=== PATIENT | male | born 1960 | race African-American/Black ===

== ENCOUNTER 2019-03-21 18:14 | Emergency (ER) | payer MEDICAID, OTHER ==
[~2019-03-21] VITALS: Ht 175.3 cm; Wt 95.7 kg
[2019-03-21] MEDS ORDERED: PROMACTA PO (18:47)
[2019-03-21 19:00] VITALS: BP 106/73
--- NOTE | 2019-03-21 19:00 | NUR ---
ED Nurse Note: Pt ambulated to ED home c/o fever at home. Pt denies pain.
[2019-03-21 19:49] LABS: BILIRUBIN, URINE NEGATIVE (NEGATIVE); GLUCOSE, URINE (UA) NEGATIVE (NEGATIVE); KETONES,URINE 1+ (NEGATIVE); LEUKOCYTE ESTERASE ,URINE 1+ (NEGATIVE); NITRITE,URINE NEGATIVE (NEGATIVE); PH,URINE 5 (4.5-8.0); PROTEIN,URINE 1+ (NEGATIVE); UROBILINOGEN,URINE NORMAL MG/DL (0.0-1.0)
[2019-03-21 19:52] LABS: APPEARANCE,URINE SLIGHTLY CLOUDY; COLOR,URINE YELLOW
[2019-03-21 19:53] LABS: ANION GAP 7 mmol/L (5-15); BLOOD UREA NITROGEN 11 mg/dL (7-18); CALCIUM 9.3 MG/DL (8.5-10.1); CARBON DIOXIDE 30 MMOL/L (21-32); CHLORIDE 103 MMOL/L (98-107); CREATININE 1.2 MG/DL (0.55-1.30); POTASSIUM 4.5 MMOL/L (3.5-5.1); SODIUM 139 MMOL/L (136-145)
[2019-03-21 19:58] LABS: ALANINE AMINOTRANSFERASE 61 U/L (12-78); ALBUMIN 3.5 G/DL (3.4-5.0); ALBUMIN/GLOBULIN RATIO 0.9 (1.0-2.7); ALKALINE PHOSPHATASE 105 U/L (46-116); ASPARTATE AMINO TRANSFERASE 40 U/L (15-37); BILIRUBIN,TOTAL 0.9 MG/DL (0.2-1.0)
[2019-03-21 20:20] LABS: HEMATOCRIT 31.5 % (42.0-52.0); HEMOGLOBIN 11.1 G/DL (14.2-18.0); MEAN CORPUSCULAR VOLUME 94 FL (80-99); PLATELET COUNT 21 K/UL (150-450); RED BLOOD COUNT 3.34 M/UL (4.70-6.10); RED CELL DISTRIBUTION WIDTH 14.7 % (11.6-14.8); WHITE BLOOD COUNT 5.4 K/UL (4.8-10.8)
[2019-03-21] MEDS ORDERED: Levofloxacin 750mg tab ORAL ONE (21:30)
[2019-03-21] MEDS ORDERED: TBO-Filgrastim 480 mcg/0.8ml SQ ONE (21:30)
[2019-03-21] MEDS ORDERED: LEVAQUIN750 MG ORAL (21:34)
[2019-03-21 21:45] VITALS: BP 106/73
--- NOTE | 2019-03-21 21:45 | NUR ---
ER DISCHARGE NOTE: Patient is cleared to be discharged per ERMD, pt is aox4, on room air, with stable vital signs. pt was given dc and prescription instructions, pt was able to verbalize understanding, pt id band and iv site removed without complications. pt is able to ambulate with steady gait. pt took all belongings.
--- NOTE | 2019-03-21 22:41 | Emergency Room Report ---
History of Present Illness General Chief Complaint: Fever Source: Patient Present Illness HPI 58-year-old male presents ED for evaluation. Complaining of a fever x1 day. States he had a temperature of 100.8. Took Tylenol. Afebrile here. States he has head and neck cancer. Is currently receiving chemotherapy treatments. Is scheduled for another one soon. States he feels fine. Denies any cough. Denies any sore throat. Denies any weakness. No other aggravating relieving factors. Denies any other associated symptoms Allergies: Coded Allergies: No Known Allergies (Unverified , 03/21/19) Patient History Past Medical History: other - head and neck cancer Past Surgical History: none Pertinent Family History: none Social History: Denies: smoking, alcohol use, drug use Immunizations: UTD Reviewed Nursing Documentation: PMH: Agreed; PSxH: Agreed Nursing Documentation-PMH Past Medical History: No History, Except For Hx Cancer: Yes - neck Review of Systems All Other Systems: negative except mentioned in HPI Physical Exam Vital Signs Date Time Temp Pulse Resp B/P (MAP) Pulse Ox O2 Delivery O2 Flow Rate FiO2 03/21/19 18:41 98.2 77 19 106/73 (84) 96 Room Air Sp02 EP Interpretation: reviewed, normal General Appearance: no apparent distress, alert, GCS 15, non-toxic Head: normocephalic, atraumatic Eyes: bilateral eye normal inspection, bilateral eye PERRL ENT: hearing grossly normal, normal pharynx, no angioedema, normal voice Neck: full range of motion, supple/symm/no masses Respiratory: chest non-tender, lungs clear, normal breath sounds, speaking full sentences Cardiovascular #1: regular rate, rhythm, no edema Cardiovascular #2: 2+ carotid (R), 2+ carotid (L), 2+ radial (R), 2+ radial (L) , 2+ dorsalis pedis (R), 2+ dorsalis pedis (L) Gastrointestinal: normal bowel sounds, non tender, soft, non-distended, no guarding, no rebound Rectal: deferred Genitourinary: normal inspection, no CVA tenderness Musculoskeletal: back normal, gait/station normal, normal range of motion, non- tender Neurologic: alert, oriented x3, responsive, motor strength/tone normal, sensory intact, speech normal Psychiatric: judgement/insight normal, memory normal, mood/affect normal, no suicidal/homicidal ideation Reflexes: 3+ bicep (R), 3+ bicep (L), 3+ tricep (R), 3+ tricep (L), 3+ knee (R) , 3+ knee (L) Lymphatic: no adenopathy Medical Decision Making Diagnostic Impression: Primary Impression: Fever Qualified Codes: R50.9 - Fever, unspecified ER Course Hospital Course 58 yo M presents to ED c/o fever. currently undegoing chemotherapy for head and neck cancer Differential diagnoses include: pneumonia, sepsis, UTI Clinical course Patient placed on stretcher. After initial history, physical exam reveals a middle aged male in no acute distress. Bilateral TM unremarkable. No pharyngeal erythema. No tonsillar exudates. No lymphadenopathy. lungs clear. I ordered labs, UA, chest x-ray. Labs reviewed- no leukocytosis, hb/hct stable, electrolytes ok, lactic ok Chest x-ray shows no focal consolidation ANC is very low. consideration for neutropenic fever. Patient appears well, nontoxic appearing. Vitals stable. discussed with his oncologist Dr. Jacob ([phone]). Agrees that patient can be discharged to home. Requesting the blood cultures be drawn Patient has been unable to get his Neupogen. We requested a dose from pharmacy and they agreed to provide Neupogen in the ED. patient was supposed to be on Levaquin but patient had not been able to fill the prescription yet. I explained that it is very important that the patient be started on these antibiotics because of his low ANC. Given a dose of Levaquin in ED. I will provide a prescription for Levaquin. Safe for discharge for close outpatient follow-up. States they have an appointment with Dr. Jacob in 2 days Diagnosis - fever Stable and discharged home with prescriptions for levaquin. Instructed to followup with PMD. Return to ED if symptoms recur or worsen Labs Test 03/21/19 19:20 White Blood Count 5.4 K/UL (4.8-10.8) Red Blood Count 3.34 M/UL (4.70-6.10) Hemoglobin 11.1 G/DL (14.2-18.0) Hematocrit 31.5 % (42.0-52.0) Mean Corpuscular Volume 94 FL (80-99) Mean Corpuscular Hemoglobin 33.1 PG (27.0-31.0) Mean Corpuscular Hemoglobin Concent 35.2 G/DL (32.0-36.0) Red Cell Distribution Width 14.7 % (11.6-14.8) Platelet Count 21 K/UL (150-450) Mean Platelet Volume 7.8 FL (6.5-10.1) Neutrophils (%) (Auto) % (45.0-75.0) Lymphocytes (%) (Auto) % (20.0-45.0) Monocytes (%) (Auto) % (1.0-10.0) Eosinophils (%) (Auto) % (0.0-3.0) Basophils (%) (Auto) % (0.0-2.0) Differential Total Cells Counted 100 Neutrophils % (Manual) 2 % (45-75) Lymphocytes % (Manual) 95 % (20-45) Monocytes % (Manual) 3 % (1-10) Eosinophils % (Manual) 0 % (0-3) Basophils % (Manual) 0 % (0-2) Band Neutrophils 0 % (0-8) Reactive Lymphocytes 2+ Platelet Estimate Decreased Platelet Morphology Normal Hypochromasia 1+ Anisocytosis 1+ Urine Color Yellow Urine Appearance Slightly cloudy Urine pH 5 (4.5-8.0) Urine Specific [place] 1.015 (1.005-1.035) Urine Protein 1+ (NEGATIVE) Urine Glucose (UA) Negative (NEGATIVE) Urine Ketones 1+ (NEGATIVE) Urine Blood Negative (NEGATIVE) Urine Nitrite Negative (NEGATIVE) Urine Bilirubin Negative (NEGATIVE) Urine Urobilinogen Normal MG/DL (0.0-1.0) Urine Leukocyte Esterase 1+ (NEGATIVE) Urine RBC 0 /HPF (0 - 0) Urine WBC 2-4 /HPF (0 - 0) Urine Squamous Epithelial Cells Occasional /LPF Urine Bacteria Few /HPF (NONE) Urine Mucus Many /LPF (NONE/OCC) Sodium Level 139 MMOL/L (136-145) Potassium Level 4.5 MMOL/L (3.5-5.1) Chloride Level 103 MMOL/L (98-107) Carbon Dioxide Level 30 MMOL/L (21-32) Anion Gap 7 mmol/L (5-15) Blood Urea Nitrogen 11 mg/dL (7-18) Creatinine 1.2 MG/DL (0.55-1.30) Estimat Glomerular Filtration Rate > 60 mL/min (>60) Glucose Level 100 MG/DL (74-106) Lactic Acid Level 0.80 mmol/L (0.4-2.0) Calcium Level 9.3 MG/DL (8.5-10.1) Total Bilirubin 0.9 MG/DL (0.2-1.0) Aspartate Amino Transf (AST/SGOT) 40 U/L (15-37) Alanine Aminotransferase (ALT/SGPT) 61 U/L (12-78) Alkaline Phosphatase 105 U/L (46-116) Total Protein 7.6 G/DL (6.4-8.2) Albumin 3.5 G/DL (3.4-5.0) Globulin 4.1 g/dL Albumin/Globulin Ratio 0.9 (1.0-2.7) Chest X-Ray Diagnostic Results Chest X-Ray Diagnostic Results : Chest X-Ray Ordered: Yes # of Views/Limited/Complete: 1 View Indication: Other EP Interpretation: Yes Interpretation: no consolidation, no effusion, no pneumothorax, no acute cardiopulmonary disease Impression: No acute disease Electronically Signed by: Electronically signed by Rick Roe MD Last Vital Signs Date Time Temp Pulse Resp B/P (MAP) Pulse Ox O2 Delivery O2 Flow Rate FiO2 03/21/19 21:45 98.2 79 19 106/73 96 Room Air Status: improved Disposition: HOME, SELF-CARE Condition: Stable Scripts Levofloxacin* (LEVAQUIN*) 750 Mg Tablet 750 MG ORAL DAILY for 7 Days, #7 TAB Prov: Rick Roe MD 03/21/19 Referrals: [facility]ERR[facility] (PCP) Patient Instructions: Neutropenia Additional Instructions: you must fill your prescription for levaquin. followup with your oncologist. return to ED if symptoms recur/worsen. Rick Roe MD Mar 21, 2019 22:41
--- NOTE | 2019-03-22 11:03 | Diagnostic Imaging Report ---
Indication: Cough Technique: One view of the chest Comparison: none Findings: Lungs and pleural spaces are clear. Heart size is normal. There is a right chest port catheter in place Impression: No acute process
== END 2019-03-21 21:45 | disposition home or self-care (01) ==
LOC: EMR 20:44
DX: R50.9 Fever, unspecified (principal); C76.0 Malignant neoplasm of head, face and neck
CPT/HCPCS: 36415; 71045; 80053; 81003; 83605; 85007; 85025; 87040; 96372; 99284; J1442

== ENCOUNTER 2019-03-27 14:56 | Emergency (ER) | payer MEDICAID, OTHER ==
[~2019-03-27] VITALS: Ht 175.3 cm; Wt 94.8 kg
[~2019-03-27 14:56] MED LIST: LEVAQUIN750 MG ORAL; PROMACTA PO
[2019-03-27 15:08] VITALS: BP 118/73
--- NOTE | 2019-03-27 15:18 | NUR ---
ED Nurse Note: PT FROM HOME CAME IN DUE TO RIGHT MIDDLE FINGER SWELLING X 4 DAYS. DENIES ANY INJURY AND STATES HE JUST WOKE UP WITH THE SWELLING. AAOX4 AND AMBULATORY.
--- NOTE | 2019-03-27 16:25 | Emergency Room Report ---
History of Present Illness General Chief Complaint: Skin Rash/Abscess Source: Patient, Medical Record Present Illness HPI 59-year-old male with history of thyroid cancer currently under the care of oncologist with a recent normal white blood count tested 2 days ago, and taking Levaquin and medication for thrombocytopenia all prescribed by primary care and oncologist, here complaining of pain and swelling on left hand stone polisher digit. Denies any fall or injury however reports that might have accidentally punctured it. Rating pain 7 out of 10 without radiation. Reports that symptoms have been existent for the past 2 days. Denies fever and chills, shortness of breath, chest chest pain, palpitation, no other associated symptoms. Also shows an overgrowth, and right wrist that reports that has been there for several months and has not mentioned it to her primary care physician nor the oncologist. Denies any pain in that area, due to it being chronic patient was advised to follow with primary care for further CT scan versus MRI of the affected area and referral to specialist for possible biopsy and vascular studies. Patient agrees. Allergies: Coded Allergies: No Known Allergies (Unverified , 03/21/19) Patient History Past Medical History: see triage record Past Surgical History: unable to obtain Pertinent Family History: none Immunizations: UTD Reviewed Nursing Documentation: PMH: Agreed; PSxH: Agreed Nursing Documentation-PMH Hx Cancer: Yes - neck Review of Systems All Other Systems: negative except mentioned in HPI Physical Exam Vital Signs Date Time Temp Pulse Resp B/P (MAP) Pulse Ox O2 Delivery O2 Flow Rate FiO2 03/27/19 15:08 98.8 87 18 118/73 93 Room Air Sp02 EP Interpretation: reviewed, normal General Appearance: no apparent distress, alert, GCS 15, non-toxic Head: normocephalic, atraumatic Eyes: bilateral eye normal inspection, bilateral eye PERRL ENT: hearing grossly normal, normal pharynx, no angioedema, normal voice Neck: full range of motion, supple/symm/no masses Respiratory: chest non-tender, lungs clear, normal breath sounds, no rhonchi, no wheezing, speaking full sentences Cardiovascular #1: regular rate, rhythm, no edema, no murmur, normal capillary refill Cardiovascular #2: 2+ radial (R), 2+ radial (L) Gastrointestinal: normal bowel sounds, non tender, soft, non-distended, no guarding, no rebound Rectal: deferred Genitourinary: no CVA tenderness Musculoskeletal: back normal, digits/nails normal, gait/station normal, normal range of motion, non-tender, no calf tenderness, pelvis stable, other - Hard, mobile, semi-pulsatile growth noted on right wrist appears to be chronic, puncture wound noted left hand stone polisher digit Neurologic: alert, oriented x3, responsive, motor strength/tone normal, sensory intact, speech normal Psychiatric: judgement/insight normal, memory normal, mood/affect normal, no suicidal/homicidal ideation Skin: other - Puncture wound left hand third digit Lymphatic: no adenopathy Medical Decision Making PA Attestation Diagnosis and treatment plans were reviewed and discussed with my supervising physician Dr. Barragan Diagnostic Impression: Primary Impression: Puncture wound of finger Additional Impression: Mass of right wrist ER Course 59-year-old male with history of thyroid cancer currently under the care of oncologist with a recent normal white blood count tested 2 days ago, and taking Levaquin and medication for thrombocytopenia all prescribed by primary care and oncologist, here complaining of pain and swelling on left hand stone polisher digit. Denies any fall or injury however reports that might have accidentally punctured it. Rating pain 7 out of 10 without radiation. Reports that symptoms have been existent for the past 2 days. Denies fever and chills, shortness of breath, chest chest pain, palpitation, no other associated symptoms. Also shows an overgrowth, and right wrist that reports that has been there for several months and has not mentioned it to her primary care physician nor the oncologist. Denies any pain in that area, due to it being chronic patient was advised to follow with primary care for further CT scan versus MRI of the affected area and referral to specialist for possible biopsy and vascular studies. Patient agrees. Ddx considered but are not limited to : Cellulitis, puncture wound, superficial infection, abscess Vital signs: are WNL, pt. is afebrile H&PE are most consistent with: Puncture wound of finger, mass of right wrist appears to be chronic, ORDERS: Keflex, ibuprofen ED INTERVENTIONS: None required at this time. DISCHARGE: At this time pt. is stable for d/c to home. Will provide printed patient care instructions, and any necessary prescriptions. Care plan and follow up instructions have been discussed with the patient prior to discharge. Patient agrees to follow-up with primary care provider and oncologist regarding the growth for further assessment. At this time after consulting with my supervising physician Dr. Barragan, and having him also examined the patient it was decided not to do any further imaging of the right wrist as this is chronic and to be further evaluated by oncologist and primary care physician. Other X-Ray Diagnostic Results Other X-Ray Diagnostic Results : X-Ray ordered: Hand # of Views/Limited Vs Complete: 3 View Indication: Pain EP Interpretation: Yes PA Xray: Interpretation reviewed, by supervising MD, and agrees with findings. Interpretation: no dislocation, no soft tissue swelling, no fractures, other - No foreign body noted Impression: No acute disease Electronically Signed by: Rubin Nagel PA-C Last Vital Signs Date Time Temp Pulse Resp B/P (MAP) Pulse Ox O2 Delivery O2 Flow Rate FiO2 03/27/19 15:08 98.8 87 18 118/73 (88) 93 Room Air Disposition: HOME, SELF-CARE Condition: Stable Scripts Cephalexin* (KEFLEX*) 500 Mg Capsule 500 MG ORAL EVERY 6 HOURS for 7 Days, #28 CAP Prov: Rubin Bowman 03/27/19 Patient Instructions: Puncture Wound, [id number] Additional Instructions: Take medication as directed, follow-up with your primary care provider, you need further imaging and possible biopsy of the growth that is on your right wrist. Since it has been there for several months it is not acute and can be further worked up by your primary care and your oncologist. If worsening symptoms return to the emergency room. Since he recently had white blood count tested 2 days ago and within normal limits with your oncologist no further white blood count testing needed at this time. Rubin Bowman Mar 27, 2019 16:25
[2019-03-27] MEDS ORDERED: CEPHALEXIN500 MG ORAL (16:26)
[2019-03-27 16:29] VITALS: BP 127/80
--- NOTE | 2019-03-27 16:29 | NUR ---
ER DISCHARGE NOTE: Patient is cleared to be discharged per PA, pt is aox4, on room air, with stable vital signs. pt was given dc and prescription instructions, pt was able to verbalize understanding, pt id band removed. pt is able to ambulate with steady gait. pt took all belongings.
--- NOTE | 2019-03-28 15:22 | Diagnostic Imaging Report ---
Indication: Right hand pain Findings: 3 views of the right hand were obtained. Normal alignment is demonstrated. No acute fractures, erosions, or periosteal reaction are seen. Bones are osteopenic. Soft tissues are unremarkable. Impression: No acute findings.
== END 2019-03-27 16:29 | disposition home or self-care (01) ==
LOC: EMR 15:31
DX: S61.233A Puncture wound without foreign body of left middle finger without damage to nail, initial encounter (principal); X58.XXXA Exposure to other specified factors, initial encounter; Y93.9 Activity, unspecified; Y92.9 Unspecified place or not applicable; R22.31 Localized swelling, mass and lump, right upper limb; Z79.899 Other long term (current) drug therapy; Z85.89 Personal history of malignant neoplasm of other organs and systems
CPT/HCPCS: 73130; Z7502; 99283

== ENCOUNTER 2019-07-01 18:18 | Emergency (ER) | payer MEDICAID ==
[~2019-07-01] VITALS: Ht 175.3 cm; Wt 94.8 kg
[~2019-07-01 18:18] MED LIST changes: +CEPHALEXIN500 MG ORAL
[2019-07-01 18:34] VITALS: BP 165/94
--- NOTE | 2019-07-01 18:44 | NUR ---
ED Nurse Note: PT FROM HOME CAME IN DUE TO CONSISTENT PRODUCTIVE COUGHING WITH CLEAR PHLEGM, CHILLS WITH FEVER FOR THE PAST FEW WEEKS. STATES CP ONLY WHEN COUGHING. NO MEDICATION TAKEN TODAY. TEMP 99.5 F IN TRIAGE. AAO X4 AND AMBULATORY WITH NON LABORED BREATHING. 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
--- NOTE | 2019-07-01 19:22 | Emergency Room Report ---
History of Present Illness General Chief Complaint: Upper Respiratory Illness Source: Patient Present Illness HPI Disclaimer: Please note that this report is being documented using [employer] technology. This can lead to erroneous entry secondary to incorrect interpretation by the dictating instrument. 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 He has been sick for approximately 2 weeks. He notes a productive cough with clear sputum over the past 2 weeks. Had an upper respiratory infection however all the other symptoms aside from the cough have now resolved. He has been using over-the- counter medications without significant improvement. Notes intermittent low- grade fevers of 101. Last chemotherapy was February 2019. He denies any chest pain, palpitations, nausea, vomiting, diarrhea. Denies sore throat, URI symptoms or difficulty swallowing. Has regular follow-up with his oncologist. Scheduled to follow-up next week. PMH: Head and neck cancer, hairy cell leukemia Allergies: None reported Social Hx: Denies drug or alcohol abuse Allergies: Coded Allergies: No Known Allergies (Unverified , 03/21/19) Nursing Documentation-PMH Past Medical History: No History, Except For Hx Cardiac Problems: No Hx Hypertension: No Hx Pacemaker: No Hx Asthma: No Hx COPD: No Hx Diabetes: Yes - PRE DM Hx Cancer: Yes - neck Hx Gastrointestinal Problems: No Hx Dialysis: No History Of Psychiatric Problem: No Hx Neurological Problems: No Hx Cerebrovascular Accident: No Review of Systems All Other Systems: negative except mentioned in HPI Physical Exam Vital Signs Date Time Temp Pulse Resp B/P (MAP) Pulse Ox O2 Delivery O2 Flow Rate FiO2 07/01/19 18:34 99.5 66 16 165/94 (117) 97 Room Air General: Awake and alert, no acute distress HEENT: NC/AT. EOMI. Neck: Left-sided neck mass. Nontender. Chest Wall: Chemotherapy port in the right chest. Cardiovascular: RRR. S1 and S2 normal. No murmur appreciated Resp: Normal work of breathing. No cough, wheezing or crackles appreciated Skin: Intact. No abrasions, laceration or rash over the exposed skin MSK: Normal tone and bulk. Moving all extremities. No obvious deformity. Neuro: Awake and alert. Mentating appropriately. Medical Decision Making Diagnostic Impression: Primary Impression: Respiratory tract infection ER Course 59-year-old male history of hairy cell leukemia and neck cancer presents for evaluation of persistent cough. Differential includes was not limited to bronchitis, pneumonia, viral syndrome, reactive disease, pneumonia, mass. Will obtain basic labs, chest x-ray, blood cultures. He is afebrile on arrival states he had a fever 101 earlier. He is on Levaquin started by his oncologist. Laboratory Tests Test 07/01/19 19:45 White Blood Count 1.4 K/UL (4.8-10.8) *L Red Blood Count 4.68 M/UL (4.70-6.10) L Hemoglobin 15.8 G/DL (14.2-18.0) Hematocrit 48.2 % (42.0-52.0) Mean Corpuscular Volume 103 FL (80-99) H Mean Corpuscular Hemoglobin 33.7 PG (27.0-31.0) H Mean Corpuscular Hemoglobin Concent 32.7 G/DL (32.0-36.0) Red Cell Distribution Width 13.5 % (11.6-14.8) Platelet Count 197 K/UL (150-450) Mean Platelet Volume 5.7 FL (6.5-10.1) L Neutrophils (%) (Auto) % (45.0-75.0) Lymphocytes (%) (Auto) % (20.0-45.0) Monocytes (%) (Auto) % (1.0-10.0) Eosinophils (%) (Auto) % (0.0-3.0) Basophils (%) (Auto) % (0.0-2.0) Differential Total Cells Counted 100 Neutrophils % (Manual) 74 % (45-75) Lymphocytes % (Manual) 25 % (20-45) Monocytes % (Manual) 1 % (1-10) Eosinophils % (Manual) 0 % (0-3) Basophils % (Manual) 0 % (0-2) Band Neutrophils 0 % (0-8) Platelet Estimate Adequate Platelet Morphology Normal Macrocytosis 1+ Sodium Level 138 MMOL/L (136-145) Potassium Level 4.0 MMOL/L (3.5-5.1) Chloride Level 102 MMOL/L (98-107) Carbon Dioxide Level 28 MMOL/L (21-32) Anion Gap 8 mmol/L (5-15) Blood Urea Nitrogen 12 mg/dL (7-18) Creatinine 1.0 MG/DL (0.55-1.30) Estimate Glomerular Filtration Rate > 60 mL/min (>60) Glucose Level 98 MG/DL (74-106) Lactic Acid Level 1.20 mmol/L (0.4-2.0) Calcium Level 8.7 MG/DL (8.5-10.1) Total Bilirubin 0.6 MG/DL (0.2-1.0) Aspartate Amino Transferase (AST) 49 U/L (15-37) H Alanine Aminotransferase (ALT) 43 U/L (12-78) Alkaline Phosphatase 81 U/L (46-116) Total Protein 7.1 G/DL (6.4-8.2) Albumin 3.1 G/DL (3.4-5.0) L Globulin 4.0 g/dL Albumin/Globulin Ratio 0.8 (1.0-2.7) L Chest X-Ray Diagnostic Results Chest X-Ray Diagnostic Results : Chest X-Ray Ordered: Yes # of Views/Limited/Complete: 1 View Indication: Shortness of Breath EP Interpretation: Yes Interpretation: other - Peripheral catheter in the right upper chest. Patchy nodules consistent with the patient's history Impression: Other - Port-A-Cath in place. Nodular airspace disease Electronically Signed by: Electronically signed by Dr. Anthony Ng Reevaluation Time: 22:06 Last Vital Signs Date Time Temp Pulse Resp B/P (MAP) Pulse Ox O2 Delivery O2 Flow Rate FiO2 07/01/19 18:44 66 16 Room Air 07/01/19 18:34 99.5 165/94 97 Reevaluation Impression Labs show a low WBC count with absolute neutrophil count of 1036. Patient is afebrile. No obvious consolidation on chest x-ray though there is patchy nodular airspace disease in the right lung consistent with the patient's history of active lung cancer. No other abnormalities appreciated on preliminary radiology read. Discussed with the patient's oncologist who tells me the patient has a scheduled CT scan and believes he has known lung nodules consistent with today's x-ray. He is recommending continuing the Levaquin and will follow-up with him in the next 3 to 4 days for reevaluation. Lactate was within normal limits and cultures were sent. Patient has been afebrile throughout his emergency department stay. He feels reassured by these findings and feels comfortable with his follow-up. He will return with any new or worsening symptoms. Patient was discharged home to follow-up with his oncologist. Prescribe him cough syrup for his nighttime cough. Disposition: HOME, SELF-CARE Condition: Stable Scripts Codeine/Promethazine Hcl* (PROMETHAZINE-CODEINE SYRUP*) 118 Ml Syrup 5 ML ORAL Q6H PRN for For Cough for 5 Days, #118 ML 0 Refills Prov: Anthony Ng MD 07/01/19 Anthony Ng MD Jul 01, 2019 19:22
--- NOTE | 2019-07-01 19:24 | NUR ---
HAND-OFF: Report given to PALOMO WARD.
--- NOTE | 2019-07-01 19:30 | NUR ---
ED Nurse Note: Recieved pt sitting on side of bed in room, pt is awake, laert and oriented x 4, here with c/o cough with clear phlem for past month, pt is chemo pt and is very concerned, last chemo 1 month ago, pt denies pain, sob, or any other complaints. pt has port-a-cath, gave ok to access for labs. pt spouse at bedside, pt placed on monitoring.
[2019-07-01 20:10] VITALS: BP 155/90
[2019-07-01 20:35] LABS: HEMATOCRIT 48.2 % (42.0-52.0); HEMOGLOBIN 15.8 G/DL (14.2-18.0); MEAN CORPUSCULAR VOLUME 103 FL (80-99); PLATELET COUNT 197 K/UL (150-450); RED BLOOD COUNT 4.68 M/UL (4.70-6.10); RED CELL DISTRIBUTION WIDTH 13.5 % (11.6-14.8)
[2019-07-01 20:39] LABS: ANION GAP 8 mmol/L (5-15); BLOOD UREA NITROGEN 12 mg/dL (7-18); CALCIUM 8.7 MG/DL (8.5-10.1); CARBON DIOXIDE 28 MMOL/L (21-32); CHLORIDE 102 MMOL/L (98-107); SODIUM 138 MMOL/L (136-145)
[2019-07-01 20:44] LABS: ALANINE AMINOTRANSFERASE 43 U/L (12-78); ALBUMIN 3.1 G/DL (3.4-5.0); ALBUMIN/GLOBULIN RATIO 0.8 (1.0-2.7); ALKALINE PHOSPHATASE 81 U/L (46-116); ASPARTATE AMINO TRANSFERASE 49 U/L (15-37); BILIRUBIN,TOTAL 0.6 MG/DL (0.2-1.0)
[2019-07-01 20:54] LABS: WHITE BLOOD COUNT 1.4 K/UL (4.8-10.8)
--- NOTE | 2019-07-01 21:00 | NUR ---
ED Nurse Note: Pt continues to rest in bed, awake and alert, no changes or increased distress, no sob, o2 sat=97% on ra, denies pain, will continue to closely monitor while waiting for results and disposition.
[2019-07-01 22:15] VITALS: BP 150/93
[2019-07-01] MEDS ORDERED: PROMETHAZINE-C118 M1 ORAL (22:30)
[2019-07-01 22:35] VITALS: BP 150/93
== END 2019-07-01 22:35 | disposition home or self-care (01) ==
LOC: EMR 19:04
DX: J06.9 Acute upper respiratory infection, unspecified (principal); Z85.6 Personal history of leukemia; R73.03 Prediabetes
CPT/HCPCS: 36415; 71046; 80053; 83605; 85007; 85025; 87040; Z7502; 99284

== ENCOUNTER 2019-08-01 10:39 | Emergency (ER) | payer MEDICAID ==
[~2019-08-01] VITALS: Ht 175.3 cm; Wt 89.4 kg
[~2019-08-01 10:39] MED LIST changes: +PROMETHAZINE-C118 M1 ORAL
--- NOTE | 2019-08-01 10:39 | Emergency Room Report ---
History of Present Illness General Chief Complaint: Upper Respiratory Illness Source: Patient Present Illness HPI Patient is a pleasant 59-year-old male past medical history of some neck cancer questionable lymphoma recent diagnosis of pneumonia last week who completed a course of Z-Byron presents to the ER complaining of right-sided chest pain, cough , and shortness of breath. Patient states that his doctor got an x-ray and told him he had pneumonia. He completed his course of antibiotics. Patient is here to make sure that it is not the pneumonia. He denies any fever or chills. He denies any abdominal pain, nausea or vomiting. He denies any smoking. He states that his is home with similar symptoms. He denies any recent travel. COVID-19 risk:Travel to affect: No Has patient experienced waldrop: No Allergies: Coded Allergies: No Known Allergies (Unverified , 03/21/19) Patient History Reviewed Nursing Documentation: PMH: Agreed; PSxH: Agreed Nursing Documentation-PMH Hx Cancer: Yes Review of Systems All Other Systems: negative except mentioned in HPI Physical Exam Vital Signs Date Time Temp Pulse Resp B/P (MAP) Pulse Ox O2 Delivery O2 Flow Rate FiO2 08/01/19 10:10 98.4 105 20 122/72 (89) 93 Room Air Sp02 EP Interpretation: reviewed, abnormal General Appearance: no apparent distress, alert, GCS 15, non-toxic Head: normocephalic, atraumatic Eyes: bilateral eye normal inspection, bilateral eye PERRL Medical Decision Making Diagnostic Impression: Primary Impression: Pneumonia ER Course Patient's x-ray demonstrates large right middle and lower lobe infiltrate. Patient already tried outpatient antibiotics which did not improve his condition. I have ordered for vancomycin as well as cefepime IV. Patient's lactate is normal. Last Vital Signs Date Time Temp Pulse Resp B/P (MAP) Pulse Ox O2 Delivery O2 Flow Rate FiO2 08/01/19 10:10 98.4 105 20 122/72 (89) 93 Room Air Disposition: COUNTS INCLUDE 234 BEDS AT [facility] Condition: Critical Physician Consult: Dr. Grey Additional Instructions: Patient being transferred for pneumonia that failed outpatient therapy. Destini Asher M.D. Aug 01, 2019 10:39
[2019-08-01 10:40] VITALS: BP 122/72
--- NOTE | 2019-08-01 10:40 | NUR ---
ER Nurse Note: Pt walked in c/o chest pain, shortness of breath and lower back pain since one week. Pt stated 6/10 pain; unrelieved with pain meds and antibiotics. Pt stated he was on meds for PNA but s/s persistant. No use of accessory muscle for breathing, no fever at triage. Pt has been around another inidividual who is sick and coughing. SLIV establshed; blood work collected and sent. Will continue to [facility].
[2019-08-01] MEDS ORDERED: Albuterol/Ipratropium 3ml neb HHN ONE (10:45)
[2019-08-01 11:03] LABS: EOSINOPHILS % (AUTO) 0.8 % (0.0-3.0); HEMATOCRIT 35.8 % (42.0-52.0); LYMPHOCYTES % (AUTO) 31.1 % (20.0-45.0); MEAN CORPUSCULAR VOLUME 93 FL (80-99); MONOCYTES % (AUTO) 8.3 % (1.0-10.0); NEUTROPHILS % (AUTO) 58.8 % (45.0-75.0); PLATELET COUNT 334 K/UL (150-450); RED BLOOD COUNT 3.85 M/UL (4.70-6.10); RED CELL DISTRIBUTION WIDTH 14.9 % (11.6-14.8); WHITE BLOOD COUNT 10.8 K/UL (4.8-10.8)
[2019-08-01 11:14] LABS: ANION GAP 12 mmol/L (5-15); BLOOD UREA NITROGEN 11 mg/dL (7-18); CALCIUM 9.3 MG/DL (8.5-10.1); CARBON DIOXIDE 26 MMOL/L (21-32); CHLORIDE 102 MMOL/L (98-107); CREATININE 1.1 MG/DL (0.55-1.30); POTASSIUM 3.9 MMOL/L (3.5-5.1); SODIUM 140 MMOL/L (136-145)
[2019-08-01 11:22] LABS: INR 1.1 (0.9-1.1)
--- NOTE | 2019-08-01 11:22 | NUR ---
ER Nurse Note: Endorse care to ED Cope for continuity of care.
[2019-08-01 11:24] LABS: ALANINE AMINOTRANSFERASE 59 U/L (12-78); ALBUMIN 2.8 G/DL (3.4-5.0); ALBUMIN/GLOBULIN RATIO 0.7 (1.0-2.7); ALKALINE PHOSPHATASE 220 U/L (46-116); ASPARTATE AMINO TRANSFERASE 94 U/L (15-37); BILIRUBIN,TOTAL 0.4 MG/DL (0.2-1.0); CREATINE KINASE 136 U/L (26-308)
[2019-08-01] MEDS ORDERED: Cefepime HCl 2 GM in D5W 55 ML IVPB ONE (11:30)
[2019-08-01] MEDS ORDERED: Vancomycin 1.5 GM in NS 275 ML IVPB ONE (11:30)
--- NOTE | 2019-08-01 12:37 | Diagnostic Imaging Report ---
Indication: Cough Technique: One view of the chest Comparison: 07/01/2019 Findings: There is dense consolidation in the right midlung. There is patchy consolidation in the left mid to lower lung and left perihilar region. The heart size is normal. The pleural spaces are clear. There is a right chest port catheter. Impression: Dense consolidation in the right midlung and patchy consolidation in the left perihilar region and left mid to lower lung, likely pneumonia. Correlate with clinical findings
--- NOTE | 2019-08-01 12:40 | NUR ---
ED Nurse Note: Received report from charge nurse. Received pt on a private room; isolation prec observed. Pt is AOx3, VSS, on RA, denies any discomfort nor pain. Obtained urine specimen via urinal; sent to labs.
[2019-08-01 13:14] LABS: APPEARANCE,URINE CLEAR; BILIRUBIN, URINE NEGATIVE (NEGATIVE); COLOR,URINE PALE YELLOW; GLUCOSE, URINE (UA) NEGATIVE (NEGATIVE); KETONES,URINE NEGATIVE (NEGATIVE); LEUKOCYTE ESTERASE ,URINE NEGATIVE (NEGATIVE); NITRITE,URINE NEGATIVE (NEGATIVE); PH,URINE 6.5 (4.5-8.0); PROTEIN,URINE NEGATIVE (NEGATIVE); UROBILINOGEN,URINE NORMAL MG/DL (0.0-1.0)
--- NOTE | 2019-08-01 13:54 | NUR ---
report given to amadou patient is to be transferd to [facility] via ambulance
[2019-08-01 14:00] VITALS: BP 120/80
== END 2019-08-01 14:30 | disposition short-term general hospital (02) ==
LOC: EMR 11:06
DX: J18.9 Pneumonia, unspecified organism (principal); Z85.89 Personal history of malignant neoplasm of other organs and systems
CPT/HCPCS: 36415; 71045; 80053; 81003; 82550; 83605; 83735; 83880; 84484; 85025; 85610; 85730; 86710; 87040; 93005; 96365; 96368; J3370; J7050; Z7502; 99284; J7620

== ENCOUNTER 2019-08-14 13:13 | Inpatient (IN) | payer MEDICAID ==
[~2019-08-14] VITALS: Ht 175.3 cm; Wt 82.6 kg
--- NOTE | 2019-08-14 13:44 | Emergency Room Report ---
History of Present Illness General Chief Complaint: Chest Pain Source: Patient Present Illness HPI Patient is a 59-year-old male presents after increased shortness of breath. Patient had a recent diagnosis of pneumonia. He had hospitalization approximately 2 weeks ago [facility]. Currently undergoing chemotherapy for cancer of the neck. He had recent increased work of breathing. Nonproductive cough. Reports having prior history of deep venous thrombosis. Denies any fever. Reports having some chest discomfort. Allergies: Coded Allergies: No Known Allergies (Unverified , 03/21/19) COVID-19 Screening Contact w/high risk pt: No Recent Travel to affected area: No Experienced COVID-19 symptoms?: Yes COVID-19 symptoms experienced: Shortness of Breath, Cough Patient History Past Medical History: see triage record Reviewed Nursing Documentation: PMH: Agreed; PSxH: Agreed Nursing Documentation-PMH Past Medical History: No History, Except For Hx Cardiac Problems: No Hx Hypertension: No Hx Pacemaker: No Hx Asthma: No Hx COPD: No Hx Diabetes: Yes - PRE DM Hx Cancer: Yes Hx Gastrointestinal Problems: No Hx Dialysis: No Hx Neurological Problems: No Hx Cerebrovascular Accident: No Review of Systems All Other Systems: negative except mentioned in HPI Physical Exam Vital Signs Date Time Temp Pulse Resp B/P (MAP) Pulse Ox O2 Delivery O2 Flow Rate FiO2 08/14/19 13:19 99.0 115 18 127/74 (91) 90 Room Air Sp02 EP Interpretation: reviewed, normal General Appearance: normal inspection, well appearing, no apparent distress, alert, GCS 15 Head: atraumatic ENT: normal ENT inspection, hearing grossly normal, normal voice Neck: normal inspection, full range of motion, supple, no bony tend, other - left side neck mass Respiratory: normal inspection, lungs clear, normal breath sounds, no respiratory distress, no retraction, no wheezing Cardiovascular #1: regular rate, rhythm, no edema Gastrointestinal: normal inspection, normal bowel sounds, non tender, soft, no guarding, no hernia Genitourinary: no CVA tenderness Musculoskeletal: normal inspection, back normal, normal range of motion Neurologic: alert, responsive, speech normal, normal inspection Psychiatric: normal inspection, judgement/insight normal, mood/affect normal Medical Decision Making Diagnostic Impression: Primary Impression: Pneumonia Additional Impressions: Suspected 2019-nCoV infection Cancer ER Course Patient presented for shortness of breath. Differential included but was not limited to anemia, pneumonia, pneumothorax, myocardial infarction, pericardial effusion, congestive heart failure, acidosis. Because of complexity of patient' s case laboratory tests and imaging studies were ordered. Cxr 1 view showed bilateral patchy infiltrates. Labs studies showed slightly elevated white blood count. Continued nonproductive cough may indicate COVID [address] Montez Vaz was contacted for inpatient management. Labs Test 08/14/19 13:54 08/14/19 14:31 White Blood Count 11.7 K/UL (4.8-10.8) Red Blood Count 4.26 M/UL (4.70-6.10) Hemoglobin 12.8 G/DL (14.2-18.0) Hematocrit 38.3 % (42.0-52.0) Mean Corpuscular Volume 90 FL (80-99) Mean Corpuscular Hemoglobin 30.0 PG (27.0-31.0) Mean Corpuscular Hemoglobin Concent 33.3 G/DL (32.0-36.0) Red Cell Distribution Width 15.2 % (11.6-14.8) Platelet Count 183 K/UL (150-450) Mean Platelet Volume 6.2 FL (6.5-10.1) Neutrophils (%) (Auto) 47.7 % (45.0-75.0) Lymphocytes (%) (Auto) 40.3 % (20.0-45.0) Monocytes (%) (Auto) 10.6 % (1.0-10.0) Eosinophils (%) (Auto) 0.7 % (0.0-3.0) Basophils (%) (Auto) 0.7 % (0.0-2.0) D-Dimer 5.02 mg/L FEU (0.00-0.49) Sodium Level 138 MMOL/L (136-145) Potassium Level 4.4 MMOL/L (3.5-5.1) Chloride Level 100 MMOL/L (98-107) Carbon Dioxide Level 28 MMOL/L (21-32) Anion Gap 10 mmol/L (5-15) Blood Urea Nitrogen 12 mg/dL (7-18) Creatinine 1.0 MG/DL (0.55-1.30) Estimat Glomerular Filtration Rate > 60 mL/min (>60) Glucose Level 96 MG/DL (74-106) Calcium Level 9.2 MG/DL (8.5-10.1) Total Bilirubin 0.6 MG/DL (0.2-1.0) Aspartate Amino Transf (AST/SGOT) 132 U/L (15-37) Alanine Aminotransferase (ALT/SGPT) 28 U/L (12-78) Alkaline Phosphatase 256 U/L (46-116) Troponin I 0.026 ng/mL (0.000-0.056) Pro-B-Type Natriuretic Peptide 68 pg/mL (0-125) Total Protein 7.0 G/DL (6.4-8.2) Albumin 3.4 G/DL (3.4-5.0) Globulin 3.6 g/dL Albumin/Globulin Ratio 0.9 (1.0-2.7) Urine Color Yellow Urine Appearance Clear Urine pH 6 (4.5-8.0) Urine Specific [place] 1.010 (1.005-1.035) Urine Protein Negative (NEGATIVE) Urine Glucose (UA) Negative (NEGATIVE) Urine Ketones Negative (NEGATIVE) Urine Blood Negative (NEGATIVE) Urine Nitrite Negative (NEGATIVE) Urine Bilirubin Negative (NEGATIVE) Urine Urobilinogen 1 MG/DL (0.0-1.0) Urine Leukocyte Esterase 1+ (NEGATIVE) Urine RBC 0 /HPF (0 - 0) Urine WBC 5-10 /HPF (0 - 0) Urine Squamous Epithelial Cells Few /LPF (NONE/OCC) Urine Bacteria Few /HPF (NONE) Urine Mucus Few /LPF (NONE/OCC) EKG Diagnostic Results Rate: normal Rhythm: NSR ST Segments: no acute changes Last Vital Signs Date Time Temp Pulse Resp B/P (MAP) Pulse Ox O2 Delivery O2 Flow Rate FiO2 08/14/19 13:19 99.0 115 18 127/74 (91) 90 Room Air Status: improved Disposition: ADMITTED INPATIENT Condition: Serious Jules Byrd MD Aug 14, 2019 13:44
[2019-08-14 13:45] VITALS: BP 146/79
[2019-08-14 14:08] LABS: BASOPHILS % (AUTO) 0.7 % (0.0-2.0); EOSINOPHILS % (AUTO) 0.7 % (0.0-3.0); HEMATOCRIT 38.3 % (42.0-52.0); HEMOGLOBIN 12.8 G/DL (14.2-18.0); LYMPHOCYTES % (AUTO) 40.3 % (20.0-45.0); MEAN CORPUSCULAR VOLUME 90 FL (80-99); MONOCYTES % (AUTO) 10.6 % (1.0-10.0); NEUTROPHILS % (AUTO) 47.7 % (45.0-75.0); PLATELET COUNT 183 K/UL (150-450); RED BLOOD COUNT 4.26 M/UL (4.70-6.10); RED CELL DISTRIBUTION WIDTH 15.2 % (11.6-14.8); WHITE BLOOD COUNT 11.7 K/UL (4.8-10.8)
[2019-08-14 14:18] LABS: ANION GAP 10 mmol/L (5-15); BLOOD UREA NITROGEN 12 mg/dL (7-18); CALCIUM 9.2 MG/DL (8.5-10.1); CARBON DIOXIDE 28 MMOL/L (21-32); CHLORIDE 100 MMOL/L (98-107); POTASSIUM 4.4 MMOL/L (3.5-5.1); SODIUM 138 MMOL/L (136-145)
--- NOTE | 2019-08-14 14:20 | NUR ---
ED Nurse Note: Pt came from outside covid tent. Pt has chest pain L side for 1 month 08/25 radiating to back. Pt also felt like he had SOB today, current O2 at 96% RA. Pt is alert and orientedx4, ambulatory. Pt lungs are clear to auscultation bilaterally.
[2019-08-14 14:29] LABS: ALANINE AMINOTRANSFERASE 28 U/L (12-78); ALBUMIN 3.4 G/DL (3.4-5.0); ALBUMIN/GLOBULIN RATIO 0.9 (1.0-2.7); ALKALINE PHOSPHATASE 256 U/L (46-116); ASPARTATE AMINO TRANSFERASE 132 U/L (15-37); BILIRUBIN,TOTAL 0.6 MG/DL (0.2-1.0)
[2019-08-14 15:49] LABS: APPEARANCE,URINE CLEAR; BILIRUBIN, URINE NEGATIVE (NEGATIVE); GLUCOSE, URINE (UA) NEGATIVE (NEGATIVE); KETONES,URINE NEGATIVE (NEGATIVE); LEUKOCYTE ESTERASE ,URINE 1+ (NEGATIVE); NITRITE,URINE NEGATIVE (NEGATIVE); PH,URINE 6 (4.5-8.0); PROTEIN,URINE NEGATIVE (NEGATIVE); UROBILINOGEN,URINE 1 MG/DL (0.0-1.0)
[2019-08-14 16:07] LABS: COLOR,URINE YELLOW
--- NOTE | 2019-08-14 16:35 | NUR ---
HAND-OFF: Report given to Zehra WARD.
[2019-08-14 16:39] VITALS: BP 133/71
--- NOTE | 2019-08-14 16:39 | NUR ---
ED Nurse Note: Received report from Janet WARD. Addendum: 08/14/19 at 1906 by GER ED Nurse Note: Pt was seen at [facility] due to PNA. Per patient, he was taking atb at home and finished the cycle.
[2019-08-14 18:31] VITALS: BP 121/78
--- NOTE | 2019-08-14 18:32 | NUR ---
ED Nurse Note: Pt awake, alert and orientedx4, verbally responsive. No SOB. Not in any distress. Safety and comfort provided. Will cont to monitor.
[2019-08-14] MEDS ORDERED: cefTRIAXone 1 GM in D5W 55 ML IVPB ONE (18:45)
[2019-08-14] MEDS ORDERED: Azithromycin 500 MG in D5W 275 ML IVPB ONE (18:45)
--- NOTE | 2019-08-14 19:04 | NUR ---
ED Nurse Note: Report given to Shaniqua. Emdorsed plan of care. Pt is currently receiving Azithromycin, no ASE. Not in any distress.
[2019-08-14] MEDS ORDERED: Milk of Magnesia 30ml Ud ORAL PRN (19:30)
[2019-08-14] MEDS ORDERED: Nitroglycerin Subl 0.4mg tab SL PRN (19:30)
[2019-08-14] MEDS ORDERED: Albuterol ud Inhalation HHN PRN (19:30)
[2019-08-14] MEDS ORDERED: Promethazine/Codeine 5ml UD ORAL PRN (19:30)
--- NOTE | 2019-08-14 19:45 | NUR ---
ED Nurse Note: Report given to Ethan WARD.
--- NOTE | 2019-08-14 19:46 | NUR ---
NURSE NOTES: Received patient from Anirudh Franklin RN. Addendum: 08/14/19 at 2251 by Ethan Alvarado RN NURSE NOTES: Received report from Anirudh Franklin RN.
--- NOTE | 2019-08-14 20:30 | NUR ---
TRANSFER TO FLOOR: Patient transferred to SDU 241-2 as ordered, per GABBY PENNINGTON. PATIENT STABLE FOR TRANSFER. COVID TRANSFER PRECAUTIONS OBSERVED; PATIENT WEARING MASK AND COVERED WITH EMERGENCY BLANKET. PATIENT TRANFERRED TO UNIT WITH MAGDA AND RN. PATIENT SENT WITH RACHEL AND ADMISSION PACKET.
[2019-08-14 21:00] VITALS: BP 131/76
--- NOTE | 2019-08-14 21:00 | NUR ---
NURSE NOTES: Received patient from Anirudh Franklin RN. 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 Patient is cooperative and clean. Patient denies chest pain, on room air, regular diet, and uses a urinal. Right AC 20g IV site is patent and intact. Bed at its lowest position call light in reach and x3 bed rails are up. Will continue to monitor.
[2019-08-14] MEDS: Docusate 100mg cap ORAL SCH (21:36)
[2019-08-14] MEDS: Piperacillin/Tazobactam 3.375 GM in NS 110 ML IVPB SCH (21:36)
[2019-08-14] MEDS: Enoxaparin 40mg Inj SUBQ SCH (21:41)
[2019-08-14] MEDS: 1/2NS w/KCl 20mEq 1000ml 1,000 ML IV SCH (22:04)
[2019-08-15] VITALS (7 sets, daily range): BP systolic 91–135; BP diastolic 55–71
--- NOTE | 2019-08-15 00:24 | NUR ---
NURSE NOTES: Patient has a right upper chest port for cancer medications.
--- NOTE | 2019-08-15 02:52 | NUR ---
NURSE NOTES: Patients sputum is clear, white foamy, bloody, and sent to lab. Urine sent to lab.
--- NOTE | 2019-08-15 04:28 | NUR ---
NURSE NOTES: Patient resting well with no complaints. Patient is cooperative and expresses his appreciation.
[2019-08-15] MEDS: Piperacillin/Tazobactam 3.375 GM in NS 110 ML IVPB SCH ×3 (06:01→21:55)
[2019-08-15 06:07] LABS: BASOPHILS % (AUTO) 0.8 % (0.0-2.0); HEMATOCRIT 33.5 % (42.0-52.0); HEMOGLOBIN 11.4 G/DL (14.2-18.0); LYMPHOCYTES % (AUTO) 33.1 % (20.0-45.0); MEAN CORPUSCULAR VOLUME 89 FL (80-99); MONOCYTES % (AUTO) 13.9 % (1.0-10.0); NEUTROPHILS % (AUTO) 51.2 % (45.0-75.0); PLATELET COUNT 165 K/UL (150-450); RED BLOOD COUNT 3.76 M/UL (4.70-6.10); RED CELL DISTRIBUTION WIDTH 14.6 % (11.6-14.8); WHITE BLOOD COUNT 7.8 K/UL (4.8-10.8)
[2019-08-15 06:16] LABS: ALANINE AMINOTRANSFERASE 27 U/L (12-78); ALBUMIN 2.7 G/DL (3.4-5.0); ALBUMIN/GLOBULIN RATIO 0.7 (1.0-2.7); ALKALINE PHOSPHATASE 228 U/L (46-116); ANION GAP 11 mmol/L (5-15); ASPARTATE AMINO TRANSFERASE 121 U/L (15-37); BILIRUBIN,TOTAL 0.5 MG/DL (0.2-1.0); BLOOD UREA NITROGEN 11 mg/dL (7-18); CALCIUM 8.8 MG/DL (8.5-10.1); CARBON DIOXIDE 25 MMOL/L (21-32); CHLORIDE 104 MMOL/L (98-107); CREATININE 0.9 MG/DL (0.55-1.30); POTASSIUM 4.3 MMOL/L (3.5-5.1); SODIUM 140 MMOL/L (136-145)
--- NOTE | 2019-08-15 06:42 | NUR ---
NURSE NOTES: Left a message with Dr. Vaz for increased Troponin. Received call from lab from Jhonny regarding the Troponin level of 0.083.
--- NOTE | 2019-08-15 07:08 | NUR ---
HAND-OFF: Report given to ED Chou.
--- NOTE | 2019-08-15 07:10 | NUR ---
NURSE NOTES: Received report from ED Long. The patient is resting on the bed without acute distress or shortness of breath. The patient's bed in the lowest position, call light in reach, and fall and aspiration precaution reinforced. IV site on R AC 20G intact and patent and running IVF per order. Notified Dr. Vaz regarding abnormal lab including elevated d-dimer and trending up of troponin with the patient's history of R calf DVT on 2014 and was on blood thinner for 9 month. No new order from Dr. Vaz. Dr. Vaz ordered to retrieve medical record from [facility] and transfer the patient to [facility]. Faxed medical record release form to [facility] Medical Record team. Spoke with Pat regarding Dr. Vaz's order to transfer the patient to [facility]. Will continue plan of care.
[2019-08-15] MEDS: Azithromycin 250mg tab ORAL SCH (08:40)
[2019-08-15] MEDS: Docusate 100mg cap ORAL SCH ×2 (08:40→21:54)
[2019-08-15] MEDS: 1/2NS w/KCl 20mEq 1000ml 1,000 ML IV SCH ×2 (08:41→18:45)
--- NOTE | 2019-08-15 10:30 | NUR ---
NURSE NOTES: The patient is stable without acute distress or shortness of breath. Will continue plan of care.
--- NOTE | 2019-08-15 11:24 | NUR ---
*-* INSURANCE *-* ALL AVAILABLE CLINICALS HAVE BEEN FAXED TO: [employer] [facility] P:[phone] F:[phone] (FAX ALL CLINICALS) Addendum: 08/16/19 at 1142 by BARON SÁNCHEZ *-* INSURANCE *-* ALL AVAILABLE CLINICALS HAVE BEEN FAXED TO: [employer] [facility] NCM:MARY P:[phone] F:[phone] (FAX ALL CLINICALS)
--- NOTE | 2019-08-15 12:00 | NUR ---
NURSE NOTES: Spoke with Pat, the special education case manager, regarding Dr. Vaz's order to transfer the patient to [facility]. Per Pat, the patient got admitted to the hospital and needs to be taken care at [facility]. Notified Dr. Vaz. The patient is stable without acute distress or shortness of breath. Will continue plan of care.
--- NOTE | 2019-08-15 12:10 | NUR ---
SLITTER AND REWINDER MACHINE OPERATOR NOTES SPOKE WITH MARY FROM [facility], PER ER DOCTOR PT IS BEING RULED/OUT FOR COVID-19. DUE TO THE R/O STATUS PT CANNOT BE TRANSFERRED. PER MARY THIS PT CAN BE TREATED AND DISCHARGED FROM [place] WITH AUTHORIZATION GIVEN. IF PT REQUIRES SURGERY, SLITTER AND REWINDER MACHINE OPERATOR TO CALL MARY FOR APPROVAL. NURSE MADE AWARE.
--- NOTE | 2019-08-15 12:25 | Diagnostic Imaging Report ---
Indication: Dyspnea Comparison: 08/01/2019 A single view chest radiograph was obtained. Findings: Patchy infiltrate versus mass noted in the right lung as was seen previously. There is also questionable infiltrates versus mass left perihilar region. There is a right chest port present. The heart is stable and normal in size. No pleural effusion seen. IMPRESSION: Patchy infiltrates versus mass. No significant radiographic change
--- NOTE | 2019-08-15 13:12 | Pulmonology Progress Note ---
Assessment/Plan Assessment/Plan Pulmonary Consultation HPI Patient is a 59 year old man admitted with increased shortness of breath, non productive cough. Recently treated for pneumonia at [facility]. Currently undergoing chemotherapy for cancer of the neck. Has a non productive cough. Reports having prior history of deep venous thrombosis. Denies any fever. Reports having some chest discomfort. Being r/o for COVID19 Coded Allergies: No Known Allergies Past Medical History: Neck Cancer, Pneumonia, Pre Diabetes Social Hx: NC Family Hx: NC All Other Systems: negative except mentioned in HPI Physical Exam Vital Signs Noted General Appearance: normal inspection, well appearing, no apparent distress, alert, GCS 15 Head: NCAT ENT: normal ENT inspection, hearing grossly normal, normal voice Neck: normal inspection, full range of motion, supple, no bony tend Respiratory: normal inspection, lungs clear, normal breath sounds, no respiratory distress, no retraction, no wheezing Cardiovascular: regular rate, rhythm, HS1, HS2, normal, no edema Gastrointestinal: normal inspection, normal bowel sounds, non tender, soft, no guarding, no hernia Genitourinary: no CVA tenderness Musculoskeletal: normal inspection, back normal, normal range of motion Neurologic: alert, responsive, speech normal, normal inspection Impression: Pneumonia Suspected COVID19 infection Neck Cancer on Chemotherapy Pre Diabetes Plan IV Antibiotics Bronchodilators PRN O2 PRN PPX 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 Await cultures, viral studies Labs Test 08/14/19 13:54 08/14/19 14:31 White Blood Count 11.7 K/UL (4.8-10.8) Red Blood Count 4.26 M/UL (4.70-6.10) Hemoglobin 12.8 G/DL (14.2-18.0) Hematocrit 38.3 % (42.0-52.0) Mean Corpuscular Volume 90 FL (80-99) Mean Corpuscular Hemoglobin 30.0 PG (27.0-31.0) Mean Corpuscular Hemoglobin Concent 33.3 G/DL (32.0-36.0) Red Cell Distribution Width 15.2 % (11.6-14.8) Platelet Count 183 K/UL (150-450) Mean Platelet Volume 6.2 FL (6.5-10.1) Neutrophils (%) (Auto) 47.7 % (45.0-75.0) Lymphocytes (%) (Auto) 40.3 % (20.0-45.0) Monocytes (%) (Auto) 10.6 % (1.0-10.0) Eosinophils (%) (Auto) 0.7 % (0.0-3.0) Basophils (%) (Auto) 0.7 % (0.0-2.0) D-Dimer 5.02 mg/L FEU (0.00-0.49) Sodium Level 138 MMOL/L (136-145) Potassium Level 4.4 MMOL/L (3.5-5.1) Chloride Level 100 MMOL/L (98-107) Carbon Dioxide Level 28 MMOL/L (21-32) Anion Gap 10 mmol/L (5-15) Blood Urea Nitrogen 12 mg/dL (7-18) Creatinine 1.0 MG/DL (0.55-1.30) Estimat Glomerular Filtration Rate > 60 mL/min (>60) Glucose Level 96 MG/DL (74-106) Calcium Level 9.2 MG/DL (8.5-10.1) Total Bilirubin 0.6 MG/DL (0.2-1.0) Aspartate Amino Transf (AST/SGOT) 132 U/L (15-37) Alanine Aminotransferase (ALT/SGPT) 28 U/L (12-78) Alkaline Phosphatase 256 U/L (46-116) Troponin I 0.026 ng/mL (0.000-0.056) Pro-B-Type Natriuretic Peptide 68 pg/mL (0-125) Total Protein 7.0 G/DL (6.4-8.2) Albumin 3.4 G/DL (3.4-5.0) Globulin 3.6 g/dL Albumin/Globulin Ratio 0.9 (1.0-2.7) Urine Color Yellow Urine Appearance Clear Urine pH 6 (4.5-8.0) Urine Specific [place] 1.010 (1.005-1.035) Urine Protein Negative (NEGATIVE) Urine Glucose (UA) Negative (NEGATIVE) Urine Ketones Negative (NEGATIVE) Urine Blood Negative (NEGATIVE) Urine Nitrite Negative (NEGATIVE) Urine Bilirubin Negative (NEGATIVE) Urine Urobilinogen 1 MG/DL (0.0-1.0) Urine Leukocyte Esterase 1+ (NEGATIVE) Urine RBC 0 /HPF (0 - 0) Urine WBC 5-10 /HPF (0 - 0) Urine Squamous Epithelial Cells Few /LPF (NONE/OCC) Urine Bacteria Few /HPF (NONE) Urine Mucus Few /LPF (NONE/OCC) CXR: Patchy infiltrates RLL Subjective ROS Limited/Unobtainable: No Respiratory: Reports: shortness of breath Allergies: Coded Allergies: No Known Allergies (Unverified , 03/21/19) Objective Last 24 Hour Vital Signs Date Time Temp Pulse Resp B/P (MAP) Pulse Ox O2 Delivery O2 Flow Rate FiO2 08/15/19 12:00 99.0 95 18 103/66 (78) 95 08/15/19 12:00 Room Air 08/15/19 08:00 98.6 97 18 98/65 (76) 96 08/15/19 08:00 89 08/15/19 08:00 Room Air 08/15/19 07:15 98.6 97 18 104/62 (76) 96 08/15/19 04:00 98.8 92 16 91/55 (67) 100 08/15/19 04:00 89 08/15/19 04:00 Room Air 08/15/19 00:00 98.6 98 19 135/60 (85) 94 08/15/19 00:00 Room Air 08/14/19 23:31 98 08/14/19 23:00 Room Air 08/14/19 22:25 104 08/14/19 21:00 98.4 110 17 131/76 (94) 95 08/14/19 20:30 98.4 76 18 121/78 97 Room Air 98 08/14/19 18:31 98.4 76 18 121/78 97 Room Air 98 08/14/19 16:39 98.6 89 19 133/71 96 Room Air 98 08/14/19 13:45 105 16 Room Air 98 08/14/19 13:45 99.0 105 16 146/79 98 Room Air 08/14/19 13:19 99.0 115 18 127/74 (91) 90 Room Air Intake and Output 08/14/19 08/15/19 19:00 07:00 Intake Total 0 ml 1197.5 ml Output Total 1000 ml Balance 0 ml 197.5 ml Intake Oral 0 ml 500 ml IV Total 697.5 ml Output Urine Total 1000 ml # Voids 3 Microbiology Date/Time Source Procedure Growth Status 08/14/19 13:35 Nasal Nares - Final Complete 08/14/19 13:35 Nasal Nares - Final Complete 08/14/19 19:00 Rectum Received Laboratory Tests 08/14/19 13:54: White Blood Count 11.7H, Red Blood Count 4.26L, Hemoglobin 12.8L, Hematocrit 38.3L, Mean Corpuscular Volume 90, Mean Corpuscular Hemoglobin 30.0, Mean Corpuscular Hemoglobin Concent 33.3, Red Cell Distribution Width 15.2H, Platelet Count 183, Mean Platelet Volume 6.2L, Neutrophils (%) (Auto) 47.7, Lymphocytes (%) (Auto) 40.3, Monocytes (%) (Auto) 10.6H, Eosinophils (%) (Auto) 0.7, Basophils (%) (Auto) 0.7, D-Dimer 5.02H, Sodium Level 138, Potassium Level 4.4, Chloride Level 100, Carbon Dioxide Level 28, Anion Gap 10, Blood Urea Nitrogen 12, Creatinine 1.0, Estimat Glomerular Filtration Rate > 60, Glucose Level 96, Calcium Level 9.2, Total Bilirubin 0.6, Aspartate Amino Transf (AST/ SGOT) 132H, Alanine Aminotransferase (ALT/SGPT) 28, Alkaline Phosphatase 256H, Troponin I 0.026, Pro-B-Type Natriuretic Peptide 68, Total Protein 7.0, Albumin 3.4, Globulin 3.6, Albumin/Globulin Ratio 0.9L 08/14/19 14:31: Urine Color Yellow, Urine Appearance Clear, Urine pH 6, Urine Specific [place] 1.010, Urine Protein Negative, Urine Glucose (UA) Negative, Urine Ketones Negative, Urine Blood Negative, Urine Nitrite Negative, Urine Bilirubin Negative , Urine Urobilinogen 1H, Urine Leukocyte Esterase 1+H, Urine RBC 0, Urine WBC 5- 10H, Urine Squamous Epithelial Cells Few, Urine Bacteria Few, Urine Mucus FewH 08/15/19 04:00: White Blood Count 7.8, Red Blood Count 3.76L, Hemoglobin 11.4L, Hematocrit 33.5L , Mean Corpuscular Volume 89, Mean Corpuscular Hemoglobin 30.4, Mean Corpuscular Hemoglobin Concent 34.1, Red Cell Distribution Width 14.6, Platelet Count 165, Mean Platelet Volume 6.1L, Neutrophils (%) (Auto) 51.2, Lymphocytes ( %) (Auto) 33.1, Monocytes (%) (Auto) 13.9H, Eosinophils (%) (Auto) 1.0, Basophils (%) (Auto) 0.8, Troponin I 0.083H 08/15/19 04:30: Sodium Level 140, Potassium Level 4.3, Chloride Level 104, Carbon Dioxide Level 25, Anion Gap 11, Blood Urea Nitrogen 11, Creatinine 0.9, Estimat Glomerular Filtration Rate > 60, Glucose Level 96, Calcium Level 8.8, Total Bilirubin 0.5, Aspartate Amino Transf (AST/SGOT) 121H, Alanine Aminotransferase (ALT/SGPT) 27, Alkaline Phosphatase 228H, Total Protein 6.6, Albumin 2.7L, Globulin 3.9, Albumin/Globulin Ratio 0.7L Current Medications Medications (Trade) Dose Ordered Sig/Christine Route PRN Reason Start Time Stop Time Status Last Admin Dose Admin Acetaminophen (Tylenol) 650 mg Q4H PRN ORAL Mild Pain (Pain Scale 1-3) 08/14/19 19:30 09/13/19 19:29 Acetaminophen (Tylenol) 650 mg Q4H PRN ORAL fever 08/14/19 19:30 09/13/19 19:29 Albuterol Sulfate (Proventil) 2.5 mg Q4H PRN HHN Shortness of Breath 08/14/19 19:30 11/12/19 19:29 Azithromycin (Zithromax) 250 mg DAILY ORAL 08/15/19 09:00 08/22/19 08:59 08/15/19 08:40 Dextrose (Dextrose 50%) 25 ml Q30M PRN IV Hypoglycemia 08/14/19 19:30 11/12/19 19:29 Dextrose (Dextrose 50%) 50 ml Q30M PRN IV Hypoglycemia 08/14/19 19:30 11/12/19 19:29 Docusate Sodium (Colace) 100 mg EVERY 12 HOURS ORAL 08/14/19 21:00 09/13/19 20:59 08/15/19 08:40 Enoxaparin Sodium (Lovenox) 40 mg Q24H SUBQ 08/14/19 21:00 11/12/19 20:59 08/14/19 21:41 Magnesium Hydroxide (Mom) 30 ml HSPRN PRN ORAL Constipation 08/14/19 19:30 09/13/19 19:29 Nitroglycerin (Ntg) 0.4 mg Q5M PRN SL Prn Chest Pain 08/14/19 19:30 09/13/19 19:29 Ondansetron HCl (Zofran) 4 mg Q6H PRN IVP Nausea & Vomiting 08/14/19 19:30 09/13/19 19:29 Piperacillin Sod/ Tazobactam Sod 3.375 gm/Sodium Chloride 110 ml @ 27.5 mls/hr EVERY 8 HOURS IVPB 08/14/19 22:00 08/19/19 21:59 08/15/19 06:01 Promethazine HCl/ Codeine (Phenergan with Codeine) 5 ml Q6H PRN ORAL For Cough 08/14/19 19:30 09/13/19 19:29 Sodium 1,000 ml @ 75 mls/hr [id number] IV 08/14/19 21:00 09/13/19 20:59 08/15/19 08:41 Ed Flores MD Aug 15, 2019 13:12
--- NOTE | 2019-08-15 14:00 | NUR ---
HAND-OFF: Report given to ED Ash. The patient is resting on the bed without acute distress or shortness of breath. The patient's bed in the lowest position, call light in reach, and fall and aspiration precaution reinforced. IV site intact and patent. Notified ED Ash regarding communication made with Pat Lehman, and medical record team at [facility]. Endorsed plan of care.
--- NOTE | 2019-08-15 14:19 | NUR ---
SPRING MACHINE OPERATOR BEDSIDE SWALLOWING EVALUATION PLEASE SEE SPRING MACHINE OPERATOR INTERVENTION SECTION FOR ADDITIONAL INFORMATION PT SEEN AT BEDSIDE. ALERT ON RA, PT PRESENTING WITH MILDLY DYSPHONIC VOCAL QUALITY, DUE TO REDUCED VOCAL LOUDNESS AND MILDLY HOARSE/ROUGH. PT ABLE TO INDEPENDENTLY REPOSITION INTO UPRIGHT POSITION FOR PO TRIALS. PT IS ON RA W/ NO OVERT S/S OF RESPIRATORY DISTRESS. PT HAS H/O SWALLOWING DIFFICULTIES DUE TO ONGOING ASSOCIATE PROFESSOR OF CRIMINAL JUSTICE DUE TO NECK CANCER. PT HAS PREVIOUSLY SPRING MACHINE OPERATOR'S RECOMMENDATIONS AND RESULTS ON HAND, PT RECOMMENDED FOR THIN LIQUIDS W/ PT PREFERENCE DIET CONSISTENCY. PT CURRENTLY ON PUREE SOLIDS WITH NECTAR THICK LIQUIDS. PT GIVEN 3 OZ OF THIN LIQUIDS VIA STRAW (AVON SWALLOW PROTOCOL). PT WAS OBSERVED W/ THROAT CLEAR AND RE-SWALLOW, POTENTIALLY INDICATIVE OF ASPIRATION VS PENETRATION. PT GIVEN NECTAR THICK LIQUIDS, NO ORAL RESIDUALS, ADEQUATE HYOLARYNGEAL ELEVATION/EXCURSION PER PALPATION, NO OVERT S/S OF ASPIRATION PER OBSERVED PT GIVEN PO TRIAL OF OREO CRACKER, PT W/ SLIGHTLY [id number] BOLUS MASTICATION/FORMULATION, ADEQUATE A-P TRANSIT W/ PT OBSERVED W/ MULTIPLE SWALLOWS S/P INITIAL BITE, ABLE TO USE COMPENSATORY STRATEGIES TO FACILITATE PHARYNGEAL CLEARANCE. INITIAL IMPRESSIONS: PT PRESENTING WITH MILD ORAL AND MODERATE PHARYNGEAL PHASE DYSPHAGIA, EXACERBATED BY CURRENT ASSOCIATE PROFESSOR OF CRIMINAL JUSTICE FOR NECK CANCER. PT W/ SLIGHTLY PROLONGED BOLUS MASTICATION/FORMULATION, W/ PHARYNGEAL SWALLOW APPEARING SLIGHTLY DELAYED. 1. TX PLAN: PT BENEFITS FROM SPRING MACHINE OPERATOR TO F/U WITH PT FOR DIET TOLERANCE, AND PROVIDE PT W/ ADDITIONAL EXERCISES AND EDUCATION FOR ONGOING STRENGTHENING OF MUSCLES DURING ASSOCIATE PROFESSOR OF CRIMINAL JUSTICE. SPRING MACHINE OPERATOR PLANS TO MONITOR PT'S CANDIDACY FOR MBSS EVALUATION . 3. DIET RECOMMENDATIONS: PT IS OK TO BE UPGRADED TO MECHANICAL SOFT FINELY CHOPPED WITH NECTAR THICK LIQUIDS. PT IS OK TO HAVE THIN LIQUIDS AT BEDSIDE, PT REQUESTED TO CONTINUE RECEIVING NECTAR THICK LIQUIDS .
--- NOTE | 2019-08-15 14:45 | History and Physical Report ---
DATE OF ADMISSION: 08/14/2019 CHIEF COMPLAINT AND REASON FOR HOSPITALIZATION: The patient admitted with pulmonary infiltrates and shortness of breath. 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 He has not had any chemotherapy recently. He was recently hospitalized at [facility] with pneumonia, presents with some shortness of breath and pulmonary infiltrates on this admission. ALLERGIES: None known. MEDICATIONS: He recently completed Levaquin for pneumonia. HABITS: He is a nondrinker and nonsmoker. PAST SURGICAL HISTORY: Biopsy of left neck mass. SYSTEM REVIEW: HEAD, EYES, EARS, NOSE, AND THROAT: Vision and hearing is good. ENDOCRINE: No known diabetes or thyroid disease. PULMONARY: Cough and shortness of breath as above. CARDIAC: No angina or PR. GASTROINTESTINAL: No GI bleeding or ulcers. No abdominal pain. GENITOURINARY: No dysuria or hematuria. NEUROLOGIC: No CVA, syncope, or seizures. PHYSICAL EXAMINATION: GENERAL: The patient is alert, well-developed, in no acute distress. VITAL SIGNS: Temperature 98.6, pulse 97, respirations 18, blood pressure 104/62, O2 saturation 96%. HEAD, EYES, EARS, NOSE, AND THROAT: Sclerae are nonicteric. Ocular motions intact in all directions. Oral mucosa moist. NECK: There is a large left-sided neck mass. LUNGS: Clear. HEART: Regular rhythm. No murmur. ABDOMEN: Soft without organomegaly or masses. EXTREMITIES: No edema, cyanosis, or clubbing. NEUROLOGIC: He is alert and oriented. Cranial nerves are intact. IMPRESSION: 1. Pulmonary infiltrates likely community-acquired pneumonia, rule out postobstructive pneumonia related to cancer. 2. Left neck mass possible lymphoma versus head neck cancer. 3. History of hairy cell leukemia. 4. Incomplete database. We do not have prior records. 5. Rule out COVID-19 per protocol. PLAN: The patient will be started on antibiotics. Monitoring his cardiac, pulmonary status. Try to get database, cultures. Montez Vaz M.D. DR: MARCIO JOB#: [id number] CC:
--- NOTE | 2019-08-15 15:09 | NUR ---
AERIAL TRAM OPERATORDIRECTOR CPG 59 YO MALE FROM HOME TO ER CC CHEST PAIN, DRY COUGH, SOB FOR WEEKS. DC FROM [facility] ON 08/03/19 SI: PNA T. 98.9 HR 115 RR 18 B/P 127/74 WBC 11.7 AST 132 ALK PHOS 256 TROP 0.026 D-DIMER 5.02 CXR=Patchy infiltrates versus mass. No significant radiographic change IS: IV BOLUS NS X 500ML ADMITTED TO STEP DOWN @ 2029 STEP DOWN STATUS DCP PENDING HOSPITAL STAY
[2019-08-15] MEDS ORDERED: Albuterol 90mcg Inhaler 8gm INH PRN (16:30)
--- NOTE | 2019-08-15 19:23 | NUR ---
HAND-OFF: Report given to Parish Franklin RN.
--- NOTE | 2019-08-15 19:25 | NUR ---
NURSE NOTES: pt report received from Nilsa WARD. pt remains stable pt is alert and oriented times 4, able to follow commands. pt is on quality assurance monitor body showing NSR, no acute cardiac distress noted. pt is Room air, able to sat at 99% O2, no acute resp distress noted. pt bed is low, locked, armed, bed rails up times 3, call light within reach. will follow plan of care.
[2019-08-15] MEDS: Enoxaparin 40mg Inj SUBQ SCH (21:54)
[2019-08-16] VITALS: BP 119/62
[2019-08-16 04:00] VITALS: BP 120/67
[2019-08-16] MEDS: Piperacillin/Tazobactam 3.375 GM in NS 110 ML IVPB SCH ×3 (06:36→23:58)
--- NOTE | 2019-08-16 07:13 | NUR ---
HAND-OFF: Report given to Nilsa WARD. Pt remains stable.
[2019-08-16 08:00] VITALS: BP 120/74
[2019-08-16 08:23] LABS: BASOPHILS % (AUTO) 0.8 % (0.0-2.0); EOSINOPHILS % (AUTO) 1.7 % (0.0-3.0); HEMATOCRIT 33.6 % (42.0-52.0); HEMOGLOBIN 11.3 G/DL (14.2-18.0); LYMPHOCYTES % (AUTO) 30.9 % (20.0-45.0); MEAN CORPUSCULAR VOLUME 89 FL (80-99); MONOCYTES % (AUTO) 12.4 % (1.0-10.0); NEUTROPHILS % (AUTO) 54.2 % (45.0-75.0); PLATELET COUNT 155 K/UL (150-450); RED BLOOD COUNT 3.78 M/UL (4.70-6.10); RED CELL DISTRIBUTION WIDTH 14.7 % (11.6-14.8)
[2019-08-16 08:28] LABS: ALANINE AMINOTRANSFERASE 21 U/L (12-78); ALBUMIN 2.7 G/DL (3.4-5.0); ALBUMIN/GLOBULIN RATIO 0.7 (1.0-2.7); ALKALINE PHOSPHATASE 205 U/L (46-116); ANION GAP 7 mmol/L (5-15); ASPARTATE AMINO TRANSFERASE 116 U/L (15-37); BILIRUBIN,TOTAL 0.7 MG/DL (0.2-1.0); BLOOD UREA NITROGEN 11 mg/dL (7-18); CALCIUM 9.1 MG/DL (8.5-10.1); CARBON DIOXIDE 27 MMOL/L (21-32); CHLORIDE 102 MMOL/L (98-107); CREATININE 0.9 MG/DL (0.55-1.30); POTASSIUM 4.4 MMOL/L (3.5-5.1); SODIUM 136 MMOL/L (136-145)
[2019-08-16] MEDS: Azithromycin 250mg tab ORAL SCH (08:44)
--- NOTE | 2019-08-16 08:45 | General Progress Note ---
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 (4) Head and neck cancer ICD Codes: C76.0 - Malignant neoplasm of head, face and neck SNOMED: 388992159 (5) Pneumonia ICD Codes: J18.9 - Pneumonia, unspecified organism SNOMED: 660190046 (6) Suspected 2019-nCoV infection ICD Codes: R68.89 - Other general symptoms and signs SNOMED: 250802444 Assessment/Plan: exam stable, await ccovid 19 study Subjective Constitutional: Reports: weakness HEENT: Reports: no symptoms Cardiovascular: Reports: no symptoms Respiratory: Reports: cough Gastrointestinal/Abdominal: Reports: no symptoms Genitourinary: Reports: no symptoms Neurologic/Psychiatric: Reports: no symptoms Endocrine: Reports: no symptoms Allergies: Coded Allergies: No Known Allergies (Unverified , 03/21/19) Objective Last 24 Hour Vital Signs Date Time Temp Pulse Resp B/P (MAP) Pulse Ox O2 Delivery O2 Flow Rate FiO2 08/16/19 04:00 98.3 85 19 120/67 (84) 98 08/16/19 04:00 90 08/16/19 04:00 Room Air 08/16/19 00:00 87 08/16/19 00:00 97.9 90 18 119/62 (81) 98 08/16/19 00:00 Room Air 08/15/19 20:00 93 08/15/19 20:00 Room Air 08/15/19 20:00 97.7 87 18 111/60 (77) 95 08/15/19 16:00 97.9 91 18 108/71 (83) 94 08/15/19 16:00 Room Air 08/15/19 15:12 96 08/15/19 12:00 99.0 95 18 103/66 (78) 95 08/15/19 12:00 Room Air 08/15/19 11:48 90 Intake and Output 08/15/19 08/16/19 19:00 07:00 Intake Total 470.0 ml 785.0 ml Output Total 1200 ml 1100 ml Balance -730.0 ml -315.0 ml Intake Oral 360 ml IV Total 110.0 ml 785.0 ml Output Urine Total 1200 ml 1100 ml # Voids 2 Laboratory Tests 08/15/19 17:55: Troponin I 0.065H 08/16/19 08:00: White Blood Count 8.0, Red Blood Count 3.78L, Hemoglobin 11.3L, Hematocrit 33.6L , Mean Corpuscular Volume 89, Mean Corpuscular Hemoglobin 29.9, Mean Corpuscular Hemoglobin Concent 33.6, Red Cell Distribution Width 14.7, Platelet Count 155, Mean Platelet Volume 6.0L, Neutrophils (%) (Auto) 54.2, Lymphocytes ( %) (Auto) 30.9, Monocytes (%) (Auto) 12.4H, Eosinophils (%) (Auto) 1.7, Basophils (%) (Auto) 0.8, Sodium Level 136, Potassium Level 4.4, Chloride Level 102, Carbon Dioxide Level 27, Anion Gap 7, Blood Urea Nitrogen 11, Creatinine 0.9, Estimat Glomerular Filtration Rate > 60, Glucose Level 85, Calcium Level 9.1, Total Bilirubin 0.7, Aspartate Amino Transf (AST/SGOT) 116H, Alanine Aminotransferase (ALT/SGPT) 21, Alkaline Phosphatase 205H, Total Protein 6.5, Albumin 2.7L, Globulin 3.8, Albumin/Globulin Ratio 0.7L Height (Feet): 5 Height (Inches): 9.00 Weight (Pounds): 184 General Appearance: no apparent distress EENT: PERRL/EOMI Neck: other - L neck mass Cardiovascular: regular rhythm Respiratory/Chest: lungs clear Abdomen: non tender Edema: other - no edema Montez Vaz MD Aug 16, 2019 08:45
[2019-08-16] MEDS: Docusate 100mg cap ORAL SCH ×2 (09:00→20:25)
[2019-08-16 09:03] LABS: CREATINE KINASE 129 U/L (26-308)
[2019-08-16] MEDS ORDERED: Vancomycin 1.5gm/NS Premix IVPB ONE (10:00)
[2019-08-16] MEDS: Metoprolol Tartrate 12.5mg TAB ORAL SCH ×2 (10:00→20:25)
[2019-08-16] MEDS: Aspirin EC 81mg tab ORAL SCH (10:00)
[2019-08-16 12:00] VITALS: BP 110/66
--- NOTE | 2019-08-16 13:07 | NUR ---
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 98.1 HR 88 RR 19 B/P 120/74 AST 116 TROP 0.065 IS: VANCO IV ZOSYN IV AZITHROMAX PO DROPLET ISOLATION STEP DOWN STATUS
--- NOTE | 2019-08-16 13:30 | NUR ---
*-* INSURANCE *-* ALL AVAILABLE CLINICALS HAVE BEEN FAXED TO: [employer] HEWITTM:MARY P:[phone] F:[phone] (FAX ALL CLINICALS)
[2019-08-16] MEDS: 1/2NS w/KCl 20mEq 1000ml 1,000 ML IV SCH (14:22)
[2019-08-16 16:00] VITALS: BP 105/66
--- NOTE | 2019-08-16 19:10 | NUR ---
HAND-OFF: Report given to Parish Franklin RN.
--- NOTE | 2019-08-16 19:25 | NUR ---
NURSE NOTES: pt report received from khoa WARD, pt remains stable. pt is alert and oriented times 4, will follow plan of care. pt is on room air, able to sat at 99%, no acute resp distress noted. pt is on gear coding machine operator showing NSR, no acute cardiac distress noted. pt bed is low, locked, armed, call light within reach, bed rails up times 3. will follow plan of care.
[2019-08-16 20:00] VITALS: BP_SYST 110; BP_DIAS 75; BP_DIAS 76
[2019-08-16] MEDS ORDERED: Dyna-Hex 2% Top Sol 2oz TOPIC SCH (20:00)
[2019-08-16] MEDS: Enoxaparin 40mg Inj SUBQ SCH (20:22)
--- NOTE | 2019-08-16 21:33 | Pulmonology Progress Note ---
Assessment/Plan Assessment/Plan Pulmonary Consultation HPI Patient is a 59 year old man admitted with increased shortness of breath, non productive cough. Recently treated for pneumonia at [facility]. Currently undergoing chemotherapy for cancer of the neck. Has a non productive cough. Reports having prior history of deep venous thrombosis. Denies any fever. 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 No new complaints, less SOB Being r/o for COVID19 Coded Allergies: No Known Allergies Past Medical History: Neck Cancer, Pneumonia, Pre Diabetes Social Hx: NC Family Hx: NC All Other Systems: negative except mentioned in HPI Physical Exam Vital Signs Noted General Appearance: normal inspection, well appearing, no apparent distress, alert, GCS 15 Head: NCAT ENT: normal ENT inspection, hearing grossly normal, normal voice Neck: normal inspection, full range of motion, supple, no bony tend Respiratory: normal inspection, lungs clear, normal breath sounds, no respiratory distress, no retraction, no wheezing Cardiovascular: regular rate, rhythm, HS1, HS2, normal, no edema Gastrointestinal: normal inspection, normal bowel sounds, non tender, soft, no guarding, no hernia Genitourinary: no CVA tenderness Musculoskeletal: normal inspection, back normal, normal range of motion Neurologic: alert, responsive, speech normal, normal inspection Impression: Pneumonia Suspected COVID19 infection Neck Cancer on Chemotherapy Pre Diabetes Plan IV Antibiotics Bronchodilators PRN O2 PRN PPX RICE MILLING SUPERVISOR Medications Await cultures, viral studies Labs Noted Test 08/14/19 13:54 08/14/19 14:31 White Blood Count 11.7 K/UL (4.8-10.8) Red Blood Count 4.26 M/UL (4.70-6.10) Hemoglobin 12.8 G/DL (14.2-18.0) Hematocrit 38.3 % (42.0-52.0) Mean Corpuscular Volume 90 FL (80-99) Mean Corpuscular Hemoglobin 30.0 PG (27.0-31.0) Mean Corpuscular Hemoglobin Concent 33.3 G/DL (32.0-36.0) Red Cell Distribution Width 15.2 % (11.6-14.8) Platelet Count 183 K/UL (150-450) Mean Platelet Volume 6.2 FL (6.5-10.1) Neutrophils (%) (Auto) 47.7 % (45.0-75.0) Lymphocytes (%) (Auto) 40.3 % (20.0-45.0) Monocytes (%) (Auto) 10.6 % (1.0-10.0) Eosinophils (%) (Auto) 0.7 % (0.0-3.0) Basophils (%) (Auto) 0.7 % (0.0-2.0) D-Dimer 5.02 mg/L FEU (0.00-0.49) Sodium Level 138 MMOL/L (136-145) Potassium Level 4.4 MMOL/L (3.5-5.1) Chloride Level 100 MMOL/L (98-107) Carbon Dioxide Level 28 MMOL/L (21-32) Anion Gap 10 mmol/L (5-15) Blood Urea Nitrogen 12 mg/dL (7-18) Creatinine 1.0 MG/DL (0.55-1.30) Estimat Glomerular Filtration Rate > 60 mL/min (>60) Glucose Level 96 MG/DL (74-106) Calcium Level 9.2 MG/DL (8.5-10.1) Total Bilirubin 0.6 MG/DL (0.2-1.0) Aspartate Amino Transf (AST/SGOT) 132 U/L (15-37) Alanine Aminotransferase (ALT/SGPT) 28 U/L (12-78) Alkaline Phosphatase 256 U/L (46-116) Troponin I 0.026 ng/mL (0.000-0.056) Pro-B-Type Natriuretic Peptide 68 pg/mL (0-125) Total Protein 7.0 G/DL (6.4-8.2) Albumin 3.4 G/DL (3.4-5.0) Globulin 3.6 g/dL Albumin/Globulin Ratio 0.9 (1.0-2.7) Urine Color Yellow Urine Appearance Clear Urine pH 6 (4.5-8.0) Urine Specific [place] 1.010 (1.005-1.035) Urine Protein Negative (NEGATIVE) Urine Glucose (UA) Negative (NEGATIVE) Urine Ketones Negative (NEGATIVE) Urine Blood Negative (NEGATIVE) Urine Nitrite Negative (NEGATIVE) Urine Bilirubin Negative (NEGATIVE) Urine Urobilinogen 1 MG/DL (0.0-1.0) Urine Leukocyte Esterase 1+ (NEGATIVE) Urine RBC 0 /HPF (0 - 0) Urine WBC 5-10 /HPF (0 - 0) Urine Squamous Epithelial Cells Few /LPF (NONE/OCC) Urine Bacteria Few /HPF (NONE) Urine Mucus Few /LPF (NONE/OCC) CXR: Patchy infiltrates RLL Subjective ROS Limited/Unobtainable: No Allergies: Coded Allergies: No Known Allergies (Unverified , 03/21/19) Objective Last 24 Hour Vital Signs Date Time Temp Pulse Resp B/P (MAP) Pulse Ox O2 Delivery O2 Flow Rate FiO2 08/16/19 20:28 82 20 96 Room Air 21 08/16/19 20:25 85 110/76 08/16/19 20:00 98.8 85 21 110/76 (87) 98 08/16/19 20:00 Room Air 08/16/19 16:00 Room Air 08/16/19 16:00 98.1 74 21 105/66 (79) 96 08/16/19 15:54 86 08/16/19 12:00 Room Air 08/16/19 12:00 97.9 79 19 110/66 (81) 94 08/16/19 11:48 79 08/16/19 10:00 88 120/74 08/16/19 08:07 84 08/16/19 08:00 Room Air 08/16/19 08:00 98.1 88 19 120/74 (89) 94 08/16/19 04:00 98.3 85 19 120/67 (84) 98 08/16/19 04:00 90 08/16/19 04:00 Room Air 08/16/19 00:00 87 08/16/19 00:00 97.9 90 18 119/62 (81) 98 08/16/19 00:00 Room Air Intake and Output 08/15/19 08/16/19 19:00 07:00 Intake Total 470.0 ml 785.0 ml Output Total 1200 ml 1100 ml Balance -730.0 ml -315.0 ml Intake Oral 360 ml IV Total 110.0 ml 785.0 ml Output Urine Total 1200 ml 1100 ml # Voids 2 Microbiology Date/Time Source Procedure Growth Status 08/14/19 14:00 Blood Blood Culture - Preliminary NO GROWTH AFTER 24 HOURS Resulted 08/14/19 13:45 Blood Blood Culture - Preliminary NO GROWTH AFTER 24 HOURS Resulted 08/15/19 06:00 Sputum Expectorated Gram Stain - Final Resulted 08/15/19 06:00 Sputum Culture - Preliminary Staphylococcus Aureus Resulted 08/14/19 19:00 Nasal Nares MRSA Culture - Final Staphylococcus Aureus - Mrsa Complete 08/14/19 13:35 Nasal Nares - Final Complete 08/14/19 13:35 Nasal Nares - Final Complete 08/15/19 02:45 Urine,Clean Catch Urine Culture - Preliminary NO GROWTH AFTER 24 HOURS Resulted 08/14/19 19:00 Rectum - Final NO CARBAPENEM-RESISTANT ENTEROBACTERI... Complete 08/14/19 19:00 Rectum VRE Culture - Final NO VANCOMYCIN RESISTANT ENTEROCOCCUS ... Complete Laboratory Tests 08/16/19 08:00: White Blood Count 8.0, Red Blood Count 3.78L, Hemoglobin 11.3L, Hematocrit 33.6L , Mean Corpuscular Volume 89, Mean Corpuscular Hemoglobin 29.9, Mean Corpuscular Hemoglobin Concent 33.6, Red Cell Distribution Width 14.7, Platelet Count 155, Mean Platelet Volume 6.0L, Neutrophils (%) (Auto) 54.2, Lymphocytes ( %) (Auto) 30.9, Monocytes (%) (Auto) 12.4H, Eosinophils (%) (Auto) 1.7, Basophils (%) (Auto) 0.8, Sodium Level 136, Potassium Level 4.4, Chloride Level 102, Carbon Dioxide Level 27, Anion Gap 7, Blood Urea Nitrogen 11, Creatinine 0.9, Estimat Glomerular Filtration Rate > 60, Glucose Level 85, Calcium Level 9.1, Total Bilirubin 0.7, Aspartate Amino Transf (AST/SGOT) 116H, Alanine Aminotransferase (ALT/SGPT) 21, Alkaline Phosphatase 205H, Total Creatine Kinase 129, Total Protein 6.5, Albumin 2.7L, Globulin 3.8, Albumin/Globulin Ratio 0.7L Current Medications Medications (Trade) Dose Ordered Sig/Christine Route PRN Reason Start Time Stop Time Status Last Admin Dose Admin Acetaminophen (Tylenol) 650 mg Q4H PRN ORAL Mild Pain (Pain Scale 1-3) 08/14/19 19:30 09/13/19 19:29 Acetaminophen (Tylenol) 650 mg Q4H PRN ORAL fever 08/14/19 19:30 09/13/19 19:29 Albuterol Sulfate (Proventil MDI) 2 puff Q6HR PRN INH Shortness of Breath 08/15/19 16:30 11/13/19 16:29 UNV Albuterol Sulfate (Proventil) 2.5 mg Q4H PRN HHN Shortness of Breath 08/14/19 19:30 11/12/19 19:29 Aspirin (Ecotrin) 81 mg DAILY ORAL 08/16/19 09:00 09/30/19 08:59 08/16/19 10:00 Azithromycin (Zithromax) 250 mg DAILY ORAL 08/15/19 09:00 08/22/19 08:59 08/16/19 08:44 Chlorhexidine Gluconate (Dasia-Hex 2%) 1 applic DAILY@2000 TOPIC 08/16/19 20:00 11/14/19 19:59 08/16/19 20:24 Dextrose (Dextrose 50%) 25 ml Q30M PRN IV Hypoglycemia 08/14/19 19:30 11/12/19 19:29 Dextrose (Dextrose 50%) 50 ml Q30M PRN IV Hypoglycemia 08/14/19 19:30 11/12/19 19:29 Docusate Sodium (Colace) 100 mg EVERY 12 HOURS ORAL 08/14/19 21:00 09/13/19 20:59 08/16/19 20:25 Enoxaparin Sodium (Lovenox) 40 mg Q24H SUBQ 08/14/19 21:00 11/12/19 20:59 08/16/19 20:22 Magnesium Hydroxide (Mom) 30 ml HSPRN PRN ORAL Constipation 08/14/19 19:30 09/13/19 19:29 Metoprolol Tartrate (Lopressor) 12.5 mg Q12HR ORAL 08/16/19 09:00 11/14/19 08:59 08/16/19 20:25 Nitroglycerin (Ntg) 0.4 mg Q5M PRN SL Prn Chest Pain 08/14/19 19:30 09/13/19 19:29 Ondansetron HCl (Zofran) 4 mg Q6H PRN IVP Nausea & Vomiting 08/14/19 19:30 09/13/19 19:29 Piperacillin Sod/ Tazobactam Sod 3.375 gm/Sodium Chloride 110 ml @ 27.5 mls/hr EVERY 8 HOURS IVPB 08/14/19 22:00 08/19/19 21:59 08/16/19 14:22 Promethazine HCl/ Codeine (Phenergan with Codeine) 5 ml Q6H PRN ORAL For Cough 08/14/19 19:30 09/13/19 19:29 Sodium 1,000 ml @ 75 mls/hr [id number] IV 08/14/19 21:00 09/13/19 20:59 08/16/19 14:22 Vancomycin HCl (Vanco rx to dose) 1 ea DAILY PRN MISC Per rx protocol 08/16/19 08:45 09/15/19 08:44 Vancomycin HCl 750 mg/Sodium Chloride 275 ml @ 183.333 mls/hr Q12H IVPB 08/16/19 22:00 08/21/19 21:59 Ed Flores MD Aug 16, 2019 21:33
[2019-08-16] MEDS: Vancomycin 750mg/NS 275ml IVPB SCH ×2 (22:31)
--- NOTE | 2019-08-16 22:31 | NUR ---
NURSE NOTES: called [facility]. requested to have Zosyn retimed for 0. Careyo uncombable and is scheduled at same time as zosyn.
--- NOTE | 2019-08-16 23:16 | NUR ---
NURSE NOTES: called [facility], spoke to leonor. requested to have zosyn rescheduled for 2300 due to vanco running right now. she relayed message to pharmacist.
[2019-08-17] VITALS: BP 114/79
[2019-08-17] MEDS: 1/2NS w/KCl 20mEq 1000ml 1,000 ML IV SCH (01:47)
[2019-08-17 04:00] VITALS: BP 118/69
--- NOTE | 2019-08-17 05:30 | NUR ---
NURSE NOTES: Blood/ LAB drawn. sent to lab. EKG done, Rhythm strips placed in pt chart.
[2019-08-17] MEDS: Piperacillin/Tazobactam 3.375 GM in NS 110 ML IVPB SCH (06:03)
[2019-08-17 06:59] LABS: BASOPHILS % (AUTO) 0.8 % (0.0-2.0); EOSINOPHILS % (AUTO) 3.1 % (0.0-3.0); HEMATOCRIT 32.6 % (42.0-52.0); HEMOGLOBIN 10.9 G/DL (14.2-18.0); LYMPHOCYTES % (AUTO) 32.2 % (20.0-45.0); MEAN CORPUSCULAR VOLUME 90 FL (80-99); MONOCYTES % (AUTO) 13.7 % (1.0-10.0); NEUTROPHILS % (AUTO) 50.2 % (45.0-75.0); PLATELET COUNT 159 K/UL (150-450); RED BLOOD COUNT 3.63 M/UL (4.70-6.10); RED CELL DISTRIBUTION WIDTH 14.8 % (11.6-14.8); WHITE BLOOD COUNT 6.3 K/UL (4.8-10.8)
[2019-08-17 07:07] LABS: ANION GAP 13 mmol/L (5-15); BLOOD UREA NITROGEN 8 mg/dL (7-18); CALCIUM 9.1 MG/DL (8.5-10.1); CARBON DIOXIDE 23 MMOL/L (21-32); CHLORIDE 105 MMOL/L (98-107); CREATININE 0.9 MG/DL (0.55-1.30); POTASSIUM 4.5 MMOL/L (3.5-5.1); SODIUM 141 MMOL/L (136-145)
--- NOTE | 2019-08-17 07:10 | NUR ---
HAND-OFF: Report given to Nilsa WARD. Pt remains stable.
--- NOTE | 2019-08-17 07:11 | NUR ---
NURSE NOTES: Received patient in bed. Awake, alert, verbal, in no apparent distress. On room air. With dry cough. No shortness of breath. Call light within reach. Droplet isolation observed. Will continue plan of care.
[2019-08-17 08:00] VITALS: BP 120/75
--- NOTE | 2019-08-17 08:30 | NUR ---
NURSE NOTES: Able to tolerate breakfast meal.
--- NOTE | 2019-08-17 08:40 | NUR ---
RD ASSESSMENT & RECOMMENDATIONS SEE CARE ACTIVITY FOR COMPLETE ASSESSMENT DAILY ESTIMATED NEEDS: Needs based on Cancer w/ chemo 75.5kg abw 25-30 kcals/kg 6136-5499 total kcals 1-2 g protein/kg 76-151 g total protein 25-30 mL/kg 7218-3933 total fluid mLs NUTRITION DIAGNOSIS: Increased kcal and pro needs r/t cancer as evidenced by pt w/ neck cancer, on chemo, po intake 50% at this time. CURRENT DIET: Regular ms finely chopped w/ NTL PO DIET RECOMMENDATIONS: Maintain current diet / texture per SANDER OPERATOR ADDITIONAL RECOMMENDATIONS: 1) Obtain a calibrated bed scale wt 2) Add Ensure Enlive BID in b/w meals Add snack in b/w meals 3) Accuchecks w/ niss as needed, per MD pt is pre-diabetic
[2019-08-17] MEDS: Docusate 100mg cap ORAL SCH (09:00)
[2019-08-17] MEDS: Azithromycin 250mg tab ORAL SCH (09:37)
[2019-08-17] MEDS: Aspirin EC 81mg tab ORAL SCH (09:37)
[2019-08-17] MEDS: Metoprolol Tartrate 12.5mg TAB ORAL SCH (09:37)
--- NOTE | 2019-08-17 10:17 | Pulmonology Progress Note ---
Assessment/Plan Assessment/Plan Pulmonary Progress Note HPI Patient is a 59 year old man admitted with increased shortness of breath, non productive cough. Recently treated for pneumonia at [facility]. Currently undergoing chemotherapy for cancer of the neck. Has a non productive cough. Reports having prior history of deep venous thrombosis. Denies any fever. 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 No new complaints, less SOB Initial COVID19 negative Remains on IV Zosyn and Vancomycin Coded Allergies: No Known Allergies Past Medical History: Neck Cancer, Pneumonia, Pre Diabetes Social Hx: NC Family Hx: NC All Other Systems: negative except mentioned in HPI Physical Exam Vital Signs Noted General Appearance: normal inspection, well appearing, no apparent distress, alert, GCS 15 Head: NCAT ENT: normal ENT inspection, hearing grossly normal, normal voice Neck: normal inspection, full range of motion, supple, no bony tend Respiratory: normal inspection, lungs clear, normal breath sounds, no respiratory distress, no retraction, no wheezing Cardiovascular: regular rate, rhythm, HS1, HS2, normal, no edema Gastrointestinal: normal inspection, normal bowel sounds, non tender, soft, no guarding, no hernia Genitourinary: no CVA tenderness Musculoskeletal: normal inspection, back normal, normal range of motion Neurologic: alert, responsive, speech normal, normal inspection Impression: Pneumonia Awaiting second COVID19 test Neck Cancer on Chemotherapy Pre Diabetes Plan IV Antibiotics Bronchodilators PRN O2 PRN PPX CPC CODER Medications Await cultures, viral studies Labs Noted Test 08/14/19 13:54 08/14/19 14:31 White Blood Count 11.7 K/UL (4.8-10.8) Red Blood Count 4.26 M/UL (4.70-6.10) Hemoglobin 12.8 G/DL (14.2-18.0) Hematocrit 38.3 % (42.0-52.0) Mean Corpuscular Volume 90 FL (80-99) Mean Corpuscular Hemoglobin 30.0 PG (27.0-31.0) Mean Corpuscular Hemoglobin Concent 33.3 G/DL (32.0-36.0) Red Cell Distribution Width 15.2 % (11.6-14.8) Platelet Count 183 K/UL (150-450) Mean Platelet Volume 6.2 FL (6.5-10.1) Neutrophils (%) (Auto) 47.7 % (45.0-75.0) Lymphocytes (%) (Auto) 40.3 % (20.0-45.0) Monocytes (%) (Auto) 10.6 % (1.0-10.0) Eosinophils (%) (Auto) 0.7 % (0.0-3.0) Basophils (%) (Auto) 0.7 % (0.0-2.0) D-Dimer 5.02 mg/L FEU (0.00-0.49) Sodium Level 138 MMOL/L (136-145) Potassium Level 4.4 MMOL/L (3.5-5.1) Chloride Level 100 MMOL/L (98-107) Carbon Dioxide Level 28 MMOL/L (21-32) Anion Gap 10 mmol/L (5-15) Blood Urea Nitrogen 12 mg/dL (7-18) Creatinine 1.0 MG/DL (0.55-1.30) Estimat Glomerular Filtration Rate > 60 mL/min (>60) Glucose Level 96 MG/DL (74-106) Calcium Level 9.2 MG/DL (8.5-10.1) Total Bilirubin 0.6 MG/DL (0.2-1.0) Aspartate Amino Transf (AST/SGOT) 132 U/L (15-37) Alanine Aminotransferase (ALT/SGPT) 28 U/L (12-78) Alkaline Phosphatase 256 U/L (46-116) Troponin I 0.026 ng/mL (0.000-0.056) Pro-B-Type Natriuretic Peptide 68 pg/mL (0-125) Total Protein 7.0 G/DL (6.4-8.2) Albumin 3.4 G/DL (3.4-5.0) Globulin 3.6 g/dL Albumin/Globulin Ratio 0.9 (1.0-2.7) Urine Color Yellow Urine Appearance Clear Urine pH 6 (4.5-8.0) Urine Specific [place] 1.010 (1.005-1.035) Urine Protein Negative (NEGATIVE) Urine Glucose (UA) Negative (NEGATIVE) Urine Ketones Negative (NEGATIVE) Urine Blood Negative (NEGATIVE) Urine Nitrite Negative (NEGATIVE) Urine Bilirubin Negative (NEGATIVE) Urine Urobilinogen 1 MG/DL (0.0-1.0) Urine Leukocyte Esterase 1+ (NEGATIVE) Urine RBC 0 /HPF (0 - 0) Urine WBC 5-10 /HPF (0 - 0) Urine Squamous Epithelial Cells Few /LPF (NONE/OCC) Urine Bacteria Few /HPF (NONE) Urine Mucus Few /LPF (NONE/OCC) CXR: Patchy infiltrates RLL Subjective ROS Limited/Unobtainable: No Allergies: Coded Allergies: No Known Allergies (Unverified , 03/21/19) Objective Last 24 Hour Vital Signs Date Time Temp Pulse Resp B/P (MAP) Pulse Ox O2 Delivery O2 Flow Rate FiO2 08/17/19 09:37 111 120/75 08/17/19 08:00 93.6 111 20 120/75 (90) 99 08/17/19 04:00 77 08/17/19 04:00 97.8 81 20 118/69 (85) 99 08/17/19 04:00 Room Air 08/17/19 00:00 Room Air 08/17/19 00:00 78 08/17/19 00:00 98.4 87 20 114/79 (91) 98 08/16/19 20:28 82 20 96 Room Air 21 08/16/19 20:25 85 110/76 08/16/19 20:00 98.8 85 21 110/76 (87) 98 08/16/19 20:00 Room Air 08/16/19 20:00 89 08/16/19 16:00 Room Air 08/16/19 16:00 98.1 74 21 105/66 (79) 96 08/16/19 15:54 86 08/16/19 12:00 Room Air 08/16/19 12:00 97.9 79 19 110/66 (81) 94 08/16/19 11:48 79 Intake and Output 08/16/19 08/17/19 18:59 06:59 Intake Total 1122.5 ml 1285.000 ml Output Total 800 ml 1000 ml Balance 322.5 ml 285.000 ml Intake Oral 240 ml IV Total 882.5 ml 1285.000 ml Output Urine Total 800 ml 1000 ml # Bowel Movements 1 Microbiology Date/Time Source Procedure Growth Status 08/14/19 14:00 Blood Blood Culture - Preliminary NO GROWTH AFTER 48 HOURS Resulted 08/14/19 13:45 Blood Blood Culture - Preliminary NO GROWTH AFTER 48 HOURS Resulted 08/15/19 06:00 Sputum Expectorated Gram Stain - Final Resulted 08/15/19 06:00 Sputum Culture - Preliminary Staphylococcus Aureus - Mrsa Usual Respiratory Hoda Resulted 08/14/19 21:20 Nasal Not Otherwise Specified MRSA Culture - Final Staphylococcus Aureus - Mrsa Complete 08/14/19 19:00 Nasal Nares MRSA Culture - Final Staphylococcus Aureus - Mrsa Complete 08/14/19 19:00 Nasopharynx Coronavirus COVID-19 PCR (LESLY) - Final Complete 08/14/19 13:35 Nasal Nares - Final Complete 08/14/19 13:35 Nasal Nares - Final Complete 08/15/19 02:45 Urine,Clean Catch Urine Culture - Final NO GROWTH AFTER 48 HOURS Complete 08/14/19 19:00 Rectum - Final NO CARBAPENEM-RESISTANT ENTEROBACTERI... Complete 08/14/19 19:00 Rectum VRE Culture - Final NO VANCOMYCIN RESISTANT ENTEROCOCCUS ... Complete Laboratory Tests 08/17/19 05:20: White Blood Count 6.3, Red Blood Count 3.63L, Hemoglobin 10.9L, Hematocrit 32.6L , Mean Corpuscular Volume 90, Mean Corpuscular Hemoglobin 30.0, Mean Corpuscular Hemoglobin Concent 33.4, Red Cell Distribution Width 14.8, Platelet Count 159, Mean Platelet Volume 6.5, Neutrophils (%) (Auto) 50.2, Lymphocytes (% ) (Auto) 32.2, Monocytes (%) (Auto) 13.7H, Eosinophils (%) (Auto) 3.1H, Basophils (%) (Auto) 0.8, Sodium Level 141, Potassium Level 4.5, Chloride Level 105, Carbon Dioxide Level 23, Anion Gap 13, Blood Urea Nitrogen 8, Creatinine 0.9, Estimat Glomerular Filtration Rate > 60, Glucose Level 84, Calcium Level 9.1 Current Medications Medications (Trade) Dose Ordered Sig/Christine Route PRN Reason Start Time Stop Time Status Last Admin Dose Admin Acetaminophen (Tylenol) 650 mg Q4H PRN ORAL Mild Pain (Pain Scale 1-3) 08/14/19 19:30 09/13/19 19:29 Acetaminophen (Tylenol) 650 mg Q4H PRN ORAL fever 08/14/19 19:30 09/13/19 19:29 Albuterol Sulfate (Proventil MDI) 2 puff Q6HR PRN INH Shortness of Breath 08/15/19 16:30 11/13/19 16:29 UNV Albuterol Sulfate (Proventil) 2.5 mg Q4H PRN HHN Shortness of Breath 08/14/19 19:30 11/12/19 19:29 Aspirin (Ecotrin) 81 mg DAILY ORAL 08/16/19 09:00 09/30/19 08:59 08/17/19 09:37 Azithromycin (Zithromax) 250 mg DAILY ORAL 08/15/19 09:00 08/22/19 08:59 08/17/19 09:37 Chlorhexidine Gluconate (Dasia-Hex 2%) 1 applic DAILY@2000 TOPIC 08/16/19 20:00 11/14/19 19:59 08/16/19 20:24 Dextrose (Dextrose 50%) 25 ml Q30M PRN IV Hypoglycemia 08/14/19 19:30 11/12/19 19:29 Dextrose (Dextrose 50%) 50 ml Q30M PRN IV Hypoglycemia 08/14/19 19:30 11/12/19 19:29 Docusate Sodium (Colace) 100 mg EVERY 12 HOURS ORAL 08/14/19 21:00 09/13/19 20:59 08/16/19 20:25 Enoxaparin Sodium (Lovenox) 40 mg Q24H SUBQ 08/14/19 21:00 11/12/19 20:59 08/16/19 20:22 Magnesium Hydroxide (Mom) 30 ml HSPRN PRN ORAL Constipation 08/14/19 19:30 09/13/19 19:29 Metoprolol Tartrate (Lopressor) 12.5 mg Q12HR ORAL 08/16/19 09:00 11/14/19 08:59 08/17/19 09:37 Nitroglycerin (Ntg) 0.4 mg Q5M PRN SL Prn Chest Pain 08/14/19 19:30 09/13/19 19:29 Ondansetron HCl (Zofran) 4 mg Q6H PRN IVP Nausea & Vomiting 08/14/19 19:30 09/13/19 19:29 Piperacillin Sod/ Tazobactam Sod 3.375 gm/Sodium Chloride 110 ml @ 27.5 mls/hr Q8H IVPB 08/16/19 23:00 08/19/19 22:59 08/17/19 06:03 Promethazine HCl/ Codeine (Phenergan with Codeine) 5 ml Q6H PRN ORAL For Cough 08/14/19 19:30 09/13/19 19:29 Sodium 1,000 ml @ 75 mls/hr [id number] IV 08/14/19 21:00 09/13/19 20:59 08/17/19 01:47 Vancomycin HCl (Vanco rx to dose) 1 ea DAILY PRN MISC Per rx protocol 08/16/19 08:45 09/15/19 08:44 Vancomycin HCl 750 mg/Sodium Chloride 275 ml @ 183.333 mls/hr Q12H IVPB 08/16/19 22:00 08/21/19 21:59 08/16/19 22:31 Ed Flores MD Aug 17, 2019 10:17
[2019-08-17] MEDS: Vancomycin 750mg/NS 275ml IVPB SCH ×2 (11:38)
--- NOTE | 2019-08-17 12:25 | NUR ---
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 98.6 HR 111 RR 20 B/P 120/75 99% RA COVID-19 NEGATIVE IS: ZOSYN IV VANCO IV IVF NS @ 75ML/HR LOVENOX SUBC STEP DOWN STATUS
[2019-08-17] MEDS ORDERED: BACTRIM-DS1 EA ORAL (13:20)
[2019-08-17] MEDS ORDERED: CLINDAMYCIN HC300 MG ORAL (13:20)
--- NOTE | 2019-08-17 13:36 | Diagnostic Imaging Report ---
Indication: Shortness of breath, cough, leg edema, history of deep venous thrombosis Technique: Grayscale and duplex images of the bilateral lower extremity veins Comparison: None Findings: Bilaterally, grayscale and duplex images demonstrate no evidence of intraluminal thrombus. Normal phasic Doppler waveforms, demonstrating normal augmentation response and no evidence of valvular insufficiency. Greater saphenous vein(s) and tibial veins are patent. Normal compressibility. Incidentally noted is a small fluid collection in the superficial right thigh with low-level internal echoes. Impression: Negative for evidence of lower extremity deep venous thrombosis bilaterally Incidental finding right mid thigh fluid collection with low-level internal echoes. This could represent a complex seroma or a small abscess. Correlate with clinical findings
--- NOTE | 2019-08-17 14:55 | NUR ---
*-* INSURANCE *-* ALL AVAILABLE CLINICALS HAVE BEEN FAXED TO: [employer] HEWITTM:MARY P:[phone] X 1924 F:[phone] (FAX ALL CLINICALS)
[2019-08-17 16:00] VITALS: BP 105/69
--- NOTE | 2019-08-17 16:40 | NUR ---
NURSE NOTES: Discharge patient to Home. Patient's daughter transported patient via private vehicle. Prescription given by Dr. Vaz provided. Educations provided. Belongings reviewed with patient. Patient remains rooms air, No respiratory distress. Patient's arm band and IV heplock removed per protocol. In stable condition.
--- NOTE | 2019-08-18 14:02 | NUR ---
*-* INSURANCE *-* NO DISCHARGE SUMMARY IN THE SYSTEM UNABLE TO SEND: [facility] ELENA NCM:MARY P:[phone] X 1924 F:[phone] (FAX ALL CLINICALS)
--- NOTE | 2019-08-18 17:11 | Discharge Summary ---
Discharge Summary Discharge Summary _ DATE OF ADMISSION: 08/14/2019 DATE OF DISCHARGE: 08/17/2019 DISCHARGED BY: Dr. Vaz REASON FOR ADMISSION: 59 years old male with past medical history of lymphoma, status post chemotherapy with the last round in April 2019 , was recently hospitalized at [facility] with pneumonia. He presented to emergency department with shortness of breath and cough. Upon evaluation patient with tachycardic and hypoxic. Laboratory work-up revealed leukocytosis D-dimer 5. Stable electrolytes and renal parameters . Glucose 96 AST 132 , ALT 28 . Troponin 0.026 , pro BNP 68.EKG revealed sinus rhythm no acute ischemic changes. Urinalysis revealed borderline pyuria, +1 leukocyte esterase , few bacteria. Chest x-ray demonstrated patchy infiltrates Venous duplex bilateral lower extremity revealed no evidence of acute DVT. COVID 19 infection was suspected , and patient was tested in ER. Patient admitted to monitored floor with contact and droplet isolation. CONSULTANTS: pulmonary Dr. Flores [facility] COURSE: Patient admitted and started on empiric antibiotics. Blood cultures were negative. Influenza A and B screen was negative. COVID 19 was not detected. Isolation was discontinued. Sputum culture revealed MRSA. Urine culture was negative. Leukocytosis resolved. Supplemental oxygen provided and titrated to keep oximetry above 92%. Nebulizing treatment with a bronchodilator provided as needed. Home medication continued , including antiplatelet therapy with aspirin , beta- jose luis. DVT prophylaxis provided. Antitussive provided as needed. Bowel regimen instituted. Supportive care provided. Prior to discharge antibiotics changed to oral to complete the course as outpatient . Patient clinically stabilized and was ready for discharge home. 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 DISCHARGE INSTRUCTIONS: Patient was discharged home. Follow-up with a primary care provider in 1 week. Complete antibiotic as prescribed. I have been assigned to dictate discharge summary for this account. I was not involved in the patient's management. Merlyn Delgado NP Aug 18, 2019 17:11
--- NOTE | 2019-08-18 17:59 | Discharge Summary ---
DATE OF ADMISSION: 08/14/2019 DATE OF DISCHARGE: 08/17/2019 PERTINENT HISTORY: The patient admitted with pulmonary infiltrates and shortness of breath. There is a history of left-sided head and neck cancer and a prior treatment for hairy cell leukemia and recent treatment for pneumonia at [facility]. PERTINENT PHYSICAL FINDINGS: See my dictated H and P. HEENT: Throat is clear. NECK: There is a large left-sided neck mass. LUNGS: Clear. HEART: Regular rhythm. ABDOMEN: Soft. EXTREMITIES: No edema. COURSE IN THE HOSPITAL: The patient was started on empiric antibiotics. COVID-19 came back negative. He had no fever, chills, or respiratory distress, or hypoxemia, and he clinically improved. Sputum showed some MRSA and normal respiratory juancho. The patient felt better and was discharged home in improved condition. FINAL DIAGNOSES: 1. Community-acquired pneumonia. 2. History of head and neck cancer. 3. Concerns for possible pneumonia related to his cancer. 4. Prior diagnosis of hairy cell leukemia. 5. Prior DVT with no DVT on current studies. 6. MRSA in the sputum, possible MRSA pneumonia although clinically he appeared to have community-acquired pneumonia. 7. History of treatment for pneumonia several weeks prior to this admission at [facility]. 8. Anemia, likely due to his cancer. DISCHARGE DISPOSITION: Home on a regular diet and Bactrim DS one q.12 h. for 15 days and clindamycin 300 mg t.i.d. for 15 days. He is scheduled to see his oncologist, Dr. Kearney, on the day post-discharge, and I did Dr. Kearney about the patient's current condition. Montez Vaz M.D. DR: SHREYAS JOB#: [id number] CC:
--- NOTE | 2019-08-19 13:58 | NUR ---
*-* INSURANCE *-* DISCHARGE SUMMARY HAS BEEN FAXED: [employer] HEWITTM:MARY P:[phone] X 1924 F:[phone] (FAX ALL CLINICALS)
== END 2019-08-17 16:40 | disposition home or self-care (01) | DRG 139 ==
LOC: EMR 13:57 → 2W 16:24 → EDBEDREQSVC 16:39 → EDBEDREQ 16:40
DX: J18.9 Pneumonia, unspecified organism (principal); C91.40 Hairy cell leukemia not having achieved remission; C76.0 Malignant neoplasm of head, face and neck; R73.03 Prediabetes
CPT/HCPCS: 36415; 71045; 80048; 80053; 81003; 82550; 83880; 84484; 85025; 85379; 86710; 87040; 87070; 87081; 87086; 87181; 87205; 87635; 93005; 93970; 94664; 96365; 96368; 99285